=== PATIENT | male | born 1965 | race Caucasian/White ===

== ENCOUNTER 2021-09-05 11:52 | Inpatient (IN) ==
[2021-09-05] MEDS ORDERED: ONDANSETRON INJ 2 MG/ML 2 ML VIAL IV STA (12:41)
[2021-09-05] MEDS ORDERED: MoRPHine SULFATE 4 MG/ML 1 ML CARP\\VIAL IV STA (12:41)
--- NOTE | 2021-09-05 12:43 | Emergency Department Note ---
History of Present Illness General Chief complaint: Ankle Pain Stated complaint: RT ANKLE PAINFUL,DISCOLORED Time Seen by Provider: 09/05/21 12:30 History of Present Illness Maximum Pain Intensity: 6 This is a 56-year-old male with a history of diabetes that presents to the emergency department via private vehicle accompanied by with complaints of "right ankle painful, discolored". The patient notes that over the past few weeks he has been experiencing right medial ankle pain, redness, swelling. He notes he has been treated with p.o. Keflex, p.o. colchicine, p.o. allopurinol. Patient denies any history of gout. He has never had this happen before. No known trauma or injury. The patient denies any fevers or chills. Patient does note a remote history of COVID-19 in May. Patient notes he is not able to ambulate secondary to significant discomfort with weightbearing. Pain 6/10. Home Medications Medication Instructions Recorded Confirmed Type allopurinol 300 mg tablet 300 mg PO QAM 09/05/21 09/05/21 History glyburide 1.25 mg tablet 1.25 mg PO BID 09/05/21 09/05/21 History lidocaine HCl 2 % topical pump 1 spray TOPICAL TID PRN 09/05/21 09/05/21 History spray lidocaine-prilocaine 2.5 %-2.5 % 1 applic TOPICAL DIRECTED PRN 09/05/21 09/05/21 History topical cream metformin 500 mg tablet 500 mg PO BIDM 09/05/21 09/05/21 History Allergies Allergy/AdvReac Type Severity Reaction Status Date / Time No Known Allergies Allergy Unverified 09/05/21 15:11 Past Med/Surg History Medical History Hx of type 2 diabetes mellitus Surgical History No pertinent past surgical history Social History Smoking Status: Never smoker Hx Alcohol Use: Yes Alcohol type: beer Hx Substance Use: No Preferred Language: Faroese Communication Ability: Effective Senior Risk Analyst Required: No Beliefs That Will Affect Care: None Current Living Situation: Spouse Other Information That Helps Us Care for You: No Feels Safe at Home: Yes Safety Concerns: Feels Safe At This Time Assistive Devices: Denture - Upper, Denture - Lower and Glasses Review of Systems A total of 10 systems reviewed and were otherwise negative Physical Exam Vital Signs Vital Signs - 24 hr 09/05/21 12:01 09/05/21 13:05 09/05/21 14:00 Temperature 36.7 C Temperature Source Temporal Artery Scan Pulse Rate 92 H 86 76 Pulse Rate [Apical] Pulse Rate from SpO2 Sensor 87 77 Respiratory Rate 20 19 18 Respiratory Effort / Characteristics Non-Labored Spontaneous Respiratory Depth Normal Respiratory Pattern Regular Blood Pressure 126/74 128/78 91/52 L Blood Pressure [Right Arm] Blood Pressure Mean 91 94 65 Blood Pressure Mean [Right Arm] Pulse Oximetry 99 98 96 Oxygen Delivery Method Room Air Sepsis Recent Fever Within 48 Hours No Sepsis New/Unexplained Change in Mental Status No Sepsis Action Taken by Nursing No Action Required 09/05/21 14:27 09/05/21 14:30 09/05/21 15:00 Temperature Temperature Source Pulse Rate 78 82 Pulse Rate [Apical] 81 Pulse Rate from SpO2 Sensor 80 82 Respiratory Rate 16 13 14 Respiratory Effort / Characteristics Respiratory Depth Respiratory Pattern Blood Pressure Blood Pressure [Right Arm] 125/80 Blood Pressure Mean Blood Pressure Mean [Right Arm] 95 Pulse Oximetry 98 97 96 Oxygen Delivery Method Room Air Room Air Room Air Sepsis Recent Fever Within 48 Hours Sepsis New/Unexplained Change in Mental Status Sepsis Action Taken by Nursing 09/05/21 15:30 09/05/21 15:39 09/05/21 16:54 Temperature Temperature Source Pulse Rate 85 85 Pulse Rate [Apical] 80 Pulse Rate from SpO2 Sensor 86 86 Respiratory Rate 18 19 14 Respiratory Effort / Characteristics Respiratory Depth Respiratory Pattern Blood Pressure Blood Pressure [Right Arm] 133/86 Blood Pressure Mean Blood Pressure Mean [Right Arm] 101 Pulse Oximetry 98 98 95 Oxygen Delivery Method Room Air Room Air Room Air Sepsis Recent Fever Within 48 Hours Sepsis New/Unexplained Change in Mental Status Sepsis Action Taken by Nursing 09/05/21 17:01 Temperature Temperature Source Pulse Rate Pulse Rate [Apical] Pulse Rate from SpO2 Sensor Respiratory Rate Respiratory Effort / Characteristics Respiratory Depth Respiratory Pattern Blood Pressure 122/81 Blood Pressure [Right Arm] Blood Pressure Mean 94 Blood Pressure Mean [Right Arm] Pulse Oximetry Oxygen Delivery Method Sepsis Recent Fever Within 48 Hours Sepsis New/Unexplained Change in Mental Status Sepsis Action Taken by Nursing VITAL SIGNS - Vital signs and nursing notes were reviewed. Stable and afebrile. GENERAL - 56-year-old male appearing his stated age who is in no acute distress. Communicates well with provider and answers questions appropriately. SKIN -right medial ankle diffusely erythematous with darkened hue. Diffuse soft tissue edema noted to the right ankle. HEAD - NC/AT. LUNGS - Chest wall symmetric without accessory muscle use, intercostals retractions, or central cyanosis. Normal vesicular breath sounds CTA B/L. No wheezes, rales, or rhonchi appreciated. CARDIAC - RRR with S1/S2. No murmur, rubs, or gallops appreciated. EXTREMITIES - No clubbing or peripheral cyanosis. There is tenderness to palpation overlying the patient's right medial ankle joint with diffuse erythema as noted above. Decreased passive range of motion of the right ankle secondary to pain. Exquisitely tender to palpation. Right dorsalis pedis pulse intact. Cap refill of all toes within normal limits. +5/5 strength noted in UE/LE b ilaterally. NEUROLOGIC - Cranial nerves II through XII grossly intact. PSYCH - A&O, and cooperates fully with examiner. Pt is very pleasant and interacts well with examiner. Course Administered Medications Sodium Chloride (Nss 1000ml) 1,000 mls @ 125 mls/hr IV .Q8H ABDIAZIZ Stop: 09/06/21 06:57 Last Admin: 09/05/21 19:42 Dose: 125 mls/hr Documented by: [id number] Piperacillin Sod/Tazobactam (Sod 3.375 gm/ Dextrose) 115 mls @ 230 mls/hr IV NOW ONE; Protocol Stop: 09/05/21 20:29 Last Admin: 09/05/21 20:04 Dose: 230 mls/hr Documented by: [id number] Discontinued Medications Piperacillin Sod/Tazobactam (Sod 4.5 gm/ Dextrose) 120 mls @ 30 mls/hr IV Q8H ABDIAZIZ; Protocol Stop: 09/07/21 17:15 Last Infusion: 09/05/21 19:59 Dose: 0 mls/hr Documented by: [id number] Admin: 09/05/21 19:41 Dose: 30 mls/hr Documented by: [id number] Vancomycin HCl 2,000 mg/ (Sodium Chloride) 540 mls @ 200 mls/hr IV NOW ONE Stop: 09/05/21 19:57 Last Admin: 09/05/21 18:40 Dose: 200 mls/hr Documented by: [id number] Morphine Sulfate (Morphine Sulfate 4 Mg/Ml 1 Ml Carp\\Vial) 4 mg IV NOW STA Stop: 09/05/21 12:42 Last Admin: 09/05/21 13:03 Dose: 4 mg Documented by: [id number] Ondansetron HCl (Ondansetron Inj 2 Mg/Ml 2 Ml Vial) 4 mg IV NOW STA Stop: 09/05/21 12:42 Last Admin: 09/05/21 13:03 Dose: 4 mg Documented by: [id number] Medical Decision Making Laboratory Data Result diagrams: 09/05/21 12:49 09/05/21 12:49 Lab Results 09/05/21 09/05/21 09/05/21 Range/Units 12:49 12:49 12:49 WBC 5.63 (4.8-10.8) K/uL RBC 4.78 (4.7-6.1) M/uL Hgb 13.8 L (14.0-18.0) g/dL Hct 41.1 L (42-52) % MCV 86.0 (80-100) fL MCH 28.9 (25-34) pg MCHC 33.6 (32-36) g/dL RDW Std Deviation 40.8 (36.4-46.3) fL RDW Coeff of Quin 12.9 (11.5-14.5) % Plt Count 272 (130-400) K/uL MPV 11.0 H (7.4-10.4) fL Immature Gran % (Auto) 0.2 % Neut % (Auto) 60.7 % Lymph % (Auto) 27.7 % [place] % (Auto) 9.6 % Eos % (Auto) 1.6 % Baso % (Auto) 0.2 % Neut # (Auto) 3.42 (1.4-6.5) K/uL Lymph # (Auto) 1.56 (1.2-3.4) K/uL [place] # (Auto) 0.54 (0.11-0.59) K/uL Eos # (Auto) 0.09 (0-0.5) K/uL Baso # (Auto) 0.01 (0-0.2) K/uL Immature Gran # (Auto) 0.01 (0.00-0.02) K/uL ESR (0-20) mm/hr PT 10.5 (9.0-12.0) Seconds INR 1.0 (0.9-1.1) APTT 34.5 H (21.0-31.0) Seconds PTT Ratio 1.3 Sodium 135 L (136-145) mmol/L Potassium 4.4 (3.5-5.1) mmol/L Chloride 101 (98-107) mmol/L Carbon Dioxide 26 (21-32) mmol/L Anion Gap 8 (3-11) BUN 14 (6-23) mg/dl Creatinine 0.58 L (0.6-1.4) mg/dl Est Cr Clr Drug Dosing 146.8 ml/min Est GFR ( Amer) 133.0 ml/min Est GFR (Non-Af Amer) 114.8 ml/min BUN/Creatinine Ratio 24.1 H (10-20) Glucose 182 H (70-99(Fasting)) mg/dl Uric Acid 2.6 (2.6-7.2) mg/dl Calcium 9.4 (8.5-10.1) mg/dl Total Bilirubin 0.3 (0.2-1.0) mg/dl AST 25 (13-39) U/L ALT 19 (7-52) U/L Alkaline Phosphatase 73 (34-104) U/L C-Reactive Protein 10.93 H (0-0.5) mg/dl Total Protein 7.8 (6.0-8.3) gm/dl Albumin 3.8 (3.4-5.0) gm/dl Globulin 4.0 (2.5-4.0) gm/dl Albumin/Globulin Ratio 1.0 (0.9-2) Procalcitonin SARS-CoV-2, RNA, NAAT (NEGATIVE) 09/05/21 09/05/21 09/05/21 Range/Units 12:49 12:49 12:49 WBC (4.8-10.8) K/uL RBC (4.7-6.1) M/uL Hgb (14.0-18.0) g/dL Hct (42-52) % MCV (80-100) fL MCH (25-34) pg MCHC (32-36) g/dL RDW Std Deviation (36.4-46.3) fL RDW Coeff of Quin (11.5-14.5) % Plt Count (130-400) K/uL MPV (7.4-10.4) fL Immature Gran % (Auto) % Neut % (Auto) % Lymph % (Auto) % [place] % (Auto) % Eos % (Auto) % Baso % (Auto) % Neut # (Auto) (1.4-6.5) K/uL Lymph # (Auto) (1.2-3.4) K/uL [place] # (Auto) (0.11-0.59) K/uL Eos # (Auto) (0-0.5) K/uL Baso # (Auto) (0-0.2) K/uL Immature Gran # (Auto) (0.00-0.02) K/uL ESR 118 H (0-20) mm/hr PT (9.0-12.0) Seconds INR (0.9-1.1) APTT (21.0-31.0) Seconds PTT Ratio Sodium (136-145) mmol/L Potassium (3.5-5.1) mmol/L Chloride (98-107) mmol/L Carbon Dioxide (21-32) mmol/L Anion Gap (3-11) BUN (6-23) mg/dl Creatinine (0.6-1.4) mg/dl Est Cr Clr Drug Dosing ml/min Est GFR ( Amer) ml/min Est GFR (Non-Af Amer) ml/min BUN/Creatinine Ratio (10-20) Glucose (70-99(Fasting)) mg/dl Uric Acid (2.6-7.2) mg/dl Calcium (8.5-10.1) mg/dl Total Bilirubin (0.2-1.0) mg/dl AST (13-39) U/L ALT (7-52) U/L Alkaline Phosphatase (34-104) U/L C-Reactive Protein Cancelled (0-0.5) mg/dl Total Protein (6.0-8.3) gm/dl Albumin (3.4-5.0) gm/dl Globulin (2.5-4.0) gm/dl Albumin/Globulin Ratio (0.9-2) Procalcitonin Cancelled SARS-CoV-2, RNA, NAAT (NEGATIVE) 09/05/21 09/05/21 Range/Units 13:10 14:40 WBC (4.8-10.8) K/uL RBC (4.7-6.1) M/uL Hgb (14.0-18.0) g/dL Hct (42-52) % MCV (80-100) fL MCH (25-34) pg MCHC (32-36) g/dL RDW Std Deviation (36.4-46.3) fL RDW Coeff of Quin (11.5-14.5) % Plt Count (130-400) K/uL MPV (7.4-10.4) fL Immature Gran % (Auto) % Neut % (Auto) % Lymph % (Auto) % [place] % (Auto) % Eos % (Auto) % Baso % (Auto) % Neut # (Auto) (1.4-6.5) K/uL Lymph # (Auto) (1.2-3.4) K/uL [place] # (Auto) (0.11-0.59) K/uL Eos # (Auto) (0-0.5) K/uL Baso # (Auto) (0-0.2) K/uL Immature Gran # (Auto) (0.00-0.02) K/uL ESR (0-20) mm/hr PT (9.0-12.0) Seconds INR (0.9-1.1) APTT (21.0-31.0) Seconds PTT Ratio Sodium (136-145) mmol/L Potassium (3.5-5.1) mmol/L Chloride (98-107) mmol/L Carbon Dioxide (21-32) mmol/L Anion Gap (3-11) BUN (6-23) mg/dl Creatinine (0.6-1.4) mg/dl Est Cr Clr Drug Dosing ml/min Est GFR ( Amer) ml/min Est GFR (Non-Af Amer) ml/min BUN/Creatinine Ratio (10-20) Glucose (70-99(Fasting)) mg/dl Uric Acid (2.6-7.2) mg/dl Calcium (8.5-10.1) mg/dl Total Bilirubin (0.2-1.0) mg/dl AST (13-39) U/L ALT (7-52) U/L Alkaline Phosphatase (34-104) U/L C-Reactive Protein (0-0.5) mg/dl Total Protein (6.0-8.3) gm/dl Albumin (3.4-5.0) gm/dl Globulin (2.5-4.0) gm/dl Albumin/Globulin Ratio (0.9-2) Procalcitonin < 0.05 SARS-CoV-2, RNA, NAAT NEGATIVE (NEGATIVE) Imaging Data Radiologist's Impression: Ankle MRI 09/05/21 14:16 MRI OF THE RIGHT ANKLE WITHOUT IV CONTRAST CLINICAL HISTORY: Atraumatic ankle pain. Swelling and erythema. COMPARISON STUDY: No priors. TECHNIQUE: MRI of the right ankle is performed utilizing various T1 and T2- weighted sequences in the axial, sagittal, and coronal planes. IV contrast was not administered for this examination. Note that interpretation is significantly suboptimal without plain film correlate. FINDINGS: There is marked soft tissue edema and subcutaneous fluid along the medial aspect of the ankle. This extends into the deep soft tissues, involving the medial tibia and talus. There is a thin serpiginous fluid collection along the medial aspect of the ankle seen on axial image #20 measuring approximately 2.5 x 3 x 0.5 cm There is significant marrow edema within the medial malleolus and the medial aspect of the talus with cortical destruction. These findings are highly concerning for osteomyelitis. No additional similar appearing marrow changes are seen throughout the remainder of the ankle. The ankle mortise is intact. No osteochondral defect is seen in the talar dome. There is no joint effusion. The Achilles tendon is normal in morphology and signal intensity. There is marked tenosynovitis of the posterior tendons. There is thickening, tendinopathy, and high-grade partial thickness tearing of the tibialis posterior tendon. The anterior tendons appear intact. There is tendinopathy of the peroneal tendons which also appear intact. The anterior tibiofibular and talofibular ligament appear intact. There is marked abnormality involving the d eltoid ligament, likely related to adjacent infection. The calcaneofibular ligament is preserved. The plantar fascia is intact as visualized. There is myositis of the medial ankle musculature. IMPRESSION: 1. There is marked superficial and deep soft tissue edema along the medial aspect of the ankle. Correlate clinically for evidence of cellulitis. 2. There is an approximately 2.5 x 3 x 0.5 cm serpiginous fluid collection overlying the medial ankle suspicious for abscess. 3. There is marrow edema and cortical destruction seen involving the medial malleolus and the medial aspect of the talus. Osteomyelitis is the diagnosis of exclusion. An inflammatory arthropathy is a much less likely differential consideration. 4. There is marked tenosynovitis of the posterior tendons, which may be on an infectious basis. 5. There is tendinopathy with significant thickening and high-grade partial thickness tearing of the tibialis posterior tendon. 6. There is significant abnormality of the deltoid ligament, likely related to adjacent infection/inflammation. Tearing is not excluded. 7. There is myositis of the regional musculature. Findings were discussed with Willard Tom in the emergency department at the time of interpretation. Electronically signed by: Master Hart M.D. 09/05/2021 5:27 PM MDM Narrative Patient was seen and evaluated as above in room B02. Review was performed of nursing notes and vital signs. After obtaining a thorough history and physical examination the above work up was performed. Patient presents to us today with atraumatic right medial ankle discomfort that has been ongoing for 3 weeks now. Patient was referred by PCP office. I did review the laboratory studies and im aging results that were provided. His vital signs are stable. Patient is exquisitely tender overlying the right medial ankle joint. He is well-perfused in the right lower extremity. No evidence of vascular compromise. He is sensory intact throughout the right lower extremity. Options of care were discussed with the patient. IV access was established. Labs were drawn. There is no leukocytosis. Mild anemia. ESR and CRP are markedly elevated. Pro-Ronnie normal. Covid testing negative. MRI significantly abnormal. I am concerned about infectious etiology at the present time. I discussed the case with orthopedics. I discussed the findings with the patient and at bedside. IV antibiotics ordered. Case discussed with hospitalist service. Please refer to further documentation regarding his stay. Case was discussed with the attending physician. GCS: 15 In the evaluation and treatment of this patient the following differential diagnoses were entertained: Fracture, dislocation, subluxation, contusion, septic joint, osteomyelitis, among others Impression & Plan Acute right ankle pain, Edema of right ankle, Ankle osteomyelitis, right, Abnormal MRI Discharge Plan Visit Data Chief Complaint: Ankle Pain Stated Complaint: RT ANKLE PAINFUL,DISCOLORED ED Provider: Lisa Gold ED Midlevel Provider: Willard Tom Discharge Problem: Acute right ankle pain, Edema of right ankle, Ankle osteomyelitis, right, Abnormal MRI Patient Disposition: Admitted As Inpatient Condition: Good Discharge Instructions Interventions: ED Discharge Assessment Last Done: 09/05/21 18:18
[2021-09-05 13:39] LABS: Basophils # (auto) 0.01 K/uL (0-0.2); Basophils % (auto) 0.2 %; Eosinophils # (auto) 0.09 K/uL (0-0.5); Eosinophils % (auto) 1.6 %; Hematocrit (blood only) 41.1 % (42-52); Hemoglobin 13.8 g/dL (14.0-18.0); Immature Granulocytes # (auto) 0.01 K/uL (0.00-0.02); Immature Granulocytes % (auto) 0.2 %; Lymphocytes # (auto) 1.56 K/uL (1.2-3.4); Lymphocytes % (auto) 27.7 %; Mean Corpuscular Hemoglobin 28.9 pg (25-34); Mean Corpuscular Hgb Conc 33.6 g/dL (32-36); Monocytes # (auto) 0.54 K/uL (0.11-0.59); Monocytes % (auto) 9.6 %; Neutrophils # (auto) 3.42 K/uL (1.4-6.5); Neutrophils % (auto) 60.7 %; Platelet Count 272 K/uL (130-400); RDW Coefficient of Variation 12.9 % (11.5-14.5); RDW Standard Deviation 40.8 fL (36.4-46.3); Red Blood Count 4.78 M/uL (4.7-6.1); White Blood Count 5.63 K/uL (4.8-10.8)
[2021-09-05 13:51] LABS: Partial Thromboplastin Ratio 1.3; Partial Thromboplastin Time 34.5 Seconds (21.0-31.0); Prothrombin Time 10.5 Seconds (9.0-12.0)
[2021-09-05 14:03] LABS: Albumin Level 3.8 gm/dl (3.4-5.0); BUN Creatinine Ratio 24.1 (10-20); Bilirubin,Total 0.3 mg/dl (0.2-1.0); C Reactive Protein 10.93 mg/dl (0-0.5); Calcium 9.4 mg/dl (8.5-10.1); Creatinine Clr Calc Pharmacy 146.8 ml/min; Est GFR (Non-African American) 114.8 ml/min; Potassium 4.4 mmol/L (3.5-5.1); Total Protein 7.8 gm/dl (6.0-8.3); Uric Acid 2.6 mg/dl (2.6-7.2)
--- NOTE | 2021-09-05 15:21 | History & Physical Report ---
Date of Service September 05, 2021 Assessment & Plan (1) Acute right ankle pain: (2) Edema of right ankle: Plan: - Admit to med surg - Cellulitis vs septic joint with hx of DM II - MRI ankle is in process - Consult ortho - Dr. Khan - for possible joint aspiration vs surgical procedure - will make NPO in case and discuss with surgery - Continue pain contol - Uric acid 2.6 - very unlikely appearance for gout - he has completed a course of keflex as outpatient x 7 days, and finished ~3days ago. Possible keeping leukocytosis down - Afebrile, other labs WNL - ESR 118 and CRP 10.93 elevated today in the ER - PT/OT consults (3) DM II (diabetes mellitus, type II), controlled: Plan: - Check A1C with am labs - Continue ISS with accuchecks - Hold metformin and glyburide (4) Gout: Plan: - Hx of such, not an acute exacerbation DVT ppx: teds, scds, lovenox sub q CODE: Full code Dispo: From home, likely to remain in the hospital x 2 days History of Present Illness Chief Complaint: Ankle pain Primary Care Provider: Vidya Cornejo MD This is a 56-year-old male with PMHx of diabetes and gout, who has been dealing with right ankle pain/edema/erythema for approximately 2-week timeframe now. He has been trialed on outpatient Keflex, colchicine and allopurinol without relief. His pain has worsened to the point where he has difficulty walking on his R ankle, and used one crutch and a cane to get into the ER waiting room. He finished Keflex approximately 3 days ago. He has been taking colchicine and allopurinol for the past 2 weeks per his PCP. He reports that the swelling does not seem to change. He notes increased erythema and dullness of his limb whenever he hangs it below a bed and improves whenever he lays flat. He denies having peripheral neuropathy at baseline, even though he is diabetic. He takes p.o. medication for diabetes routinely. Patient denies any other specific medical history. His is with him at bedside and supports the history. CRP and ESR are significantly elevated, an MRI is in process Social history: No smoking, 3-4 alcoholic drinks per year Surgical history: None Family history: Grandfather with cardiac disease Allergies Allergy/AdvReac Type Severity Reaction Status Date / Time No Known Allergies Allergy Unverified 09/05/21 15:11 Home Medications Medication Instructions Recorded Confirmed Type allopurinol 300 mg tablet 300 mg PO QAM 09/05/21 09/05/21 History glyburide 1.25 mg tablet 1.25 mg PO BID 09/05/21 09/05/21 History lidocaine HCl 2 % topical pump 1 spray TOPICAL TID PRN 09/05/21 09/05/21 History spray lidocaine-prilocaine 2.5 %-2.5 % 1 applic TOPICAL DIRECTED PRN 09/05/21 09/05/21 History topical cream metformin 500 mg tablet 500 mg PO BIDM 09/05/21 09/05/21 History Past Med/Surg History Social History Smoking Status: Never smoker Hx Alcohol Use: Yes Alcohol type: beer Hx Substance Use: No Preferred Language: [place] Island[place] Communication Ability: Effective [employer] 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 Required: No Beliefs That Will Affect Care: None Current Living Situation: Spouse Other Information That Helps Us Care for You: No Feels Safe at Home: Yes Safety Concerns: Feels Safe At This Time Assistive Devices: Denture - Upper, Denture - Lower and Glasses Review of Systems Review of Systems: Constitutional: No fever, sweats or chills Eyes: No diplopia, no worsening or blurred vision ENT: normal hearing, no trouble swallowing Respiratory: No cough, sputum, dyspnea at rest or on exertion Cardiovascular: No chest pain, tightness or palpitations Abdomen: No pain, nausea, vomiting, diarrhea or constipation Musculoskeletal: R ankle pain, redness, swelling, pain with walking on it, increased redness with hanging foot off the side of the bed, no other joint pain, calf pain, swelling Neurologic: No weakness, numbness/tingling, or balance problems Psychiatric: No anxiety or depression Skin: No rash or itch, + lesions over shoulders that pt has picked open himself Physical Exam Physical Exam: General: awake, alert, no apparent distress Head: Normocephalic, atraumatic ENT: PERRL, EOMI, no pharyngeal exudate, mucous membranes moist Chest: Clear to auscultation, on room air, no adventitious breath sounds Cardiac: Regular rate and rhythm, no murmur, no JVD, normal peripheral pulses, good capillary refill Abdominal: NABS x 4 quadrants, soft, nondistended, nontender to palpation, no rebound or guarding Extremities: RLE; medial ankle with erythema, edema, no point of injury, pain with dorsiflexion and limited ROM, can plantarflex without much difficulty, + onychomycosis, no open lesions between toes, + dried skin over feet bilaterally, otherwise Normal inspection, no peripheral edema or erythema, calfs nontender to palpation Psych: Normal mood and affect Neuro: AAO x 3, strength intact bilaterally and rated 5/5, no motor deficits, speech is clear, no peripheral sensory deficits Results & Data Results & Data ([facility]) Vital Signs (Past 12 Hours) Vital Signs Temp Pulse Pulse Resp BP BP Pulse Ox 09/05/21 14:27 81 16 125/80 98 09/05/21 14:00 76 18 91/52 L 96 09/05/21 13:05 86 19 128/78 98 09/05/21 12:01 36.7 C 92 H 20 126/74 99 Laboratory Results 09/05/21 12:49 Aerobic Blood Culture - Pending Blood Anaerobic Blood Culture - Pending 09/05/21 12:49 Aerobic Blood Culture - Pending Blood Anaerobic Blood Culture - Pending 09/05/21 09/05/21 09/05/21 14:40 13:10 12:49 WBC RBC Hgb Hct MCV MCH MCHC RDW Std Deviation RDW Coeff of Quin Plt Count MPV Immature Gran % (Auto) Neut % (Auto) Lymph % (Auto) [place] % (Auto) Eos % (Auto) Baso % (Auto) Neut # (Auto) Lymph # (Auto) [place] # (Auto) Eos # (Auto) Baso # (Auto) Immature Gran # (Auto) ESR PT INR APTT PTT Ratio Sodium Potassium Chloride Carbon Dioxide Anion Gap BUN Creatinine Est Cr Clr Drug Dosing Est GFR ( Amer) Est GFR (Non-Af Amer) BUN/Creatinine Ratio Glucose Uric Acid Calcium Total Bilirubin AST ALT Alkaline Phosphatase C-Reactive Protein Total Protein Albumin Globulin Albumin/Globulin Ratio Procalcitonin < 0.05 Cancelled SARS-CoV-2, RNA, NAAT NEGATIVE 09/05/21 09/05/21 09/05/21 12:49 12:49 12:49 WBC RBC Hgb Hct MCV MCH MCHC RDW Std Deviation RDW Coeff of Quin Plt Count MPV Immature Gran % (Auto) Neut % (Auto) Lymph % (Auto) [place] % (Auto) Eos % (Auto) Baso % (Auto) Neut # (Auto) Lymph # (Auto) [place] # (Auto) Eos # (Auto) Baso # (Auto) Immature Gran # (Auto) ESR 118 H PT INR APTT PTT Ratio Sodium 135 L Potassium 4.4 Chloride 101 Carbon Dioxide 26 Anion Gap 8 BUN 14 Creatinine 0.58 L Est Cr Clr Drug Dosing 146.8 Est GFR ( Amer) 133.0 Est GFR (Non-Af Amer) 114.8 BUN/Creatinine Ratio 24.1 H Glucose 182 H Uric Acid 2.6 Calcium 9.4 Total Bilirubin 0.3 AST 25 ALT 19 Alkaline Phosphatase 73 C-Reactive Protein Cancelled 10.93 H Total Protein 7.8 Albumin 3.8 Globulin 4.0 Albumin/Globulin Ratio 1.0 Procalcitonin SARS-CoV-2, RNA, NAAT 09/05/21 09/05/21 12:49 12:49 WBC 5.63 RBC 4.78 Hgb 13.8 L Hct 41.1 L MCV 86.0 MCH 28.9 MCHC 33.6 RDW Std Deviation 40.8 RDW Coeff of Quin 12.9 Plt Count 272 MPV 11.0 H Immature Gran % (Auto) 0.2 Neut % (Auto) 60.7 Lymph % (Auto) 27.7 [place] % (Auto) 9.6 Eos % (Auto) 1.6 Baso % (Auto) 0.2 Neut # (Auto) 3.42 Lymph # (Auto) 1.56 [place] # (Auto) 0.54 Eos # (Auto) 0.09 Baso # (Auto) 0.01 Immature Gran # (Auto) 0.01 ESR PT 10.5 INR 1.0 APTT 34.5 H PTT Ratio 1.3 Sodium Potassium Chloride Carbon Dioxide Anion Gap BUN Creatinine Est Cr Clr Drug Dosing Est GFR ( Amer) Est GFR (Non-Af Amer) BUN/Creatinine Ratio Glucose Uric Acid Calcium Total Bilirubin AST ALT Alkaline Phosphatase C-Reactive Protein Total Protein Albumin Globulin Albumin/Globulin Ratio Procalcitonin SARS-CoV-2, RNA, NAAT Diagnostic Findings MRI ordered and in process Code Status & VTE Plan Code Status Full code Supervising Physician Co-Signing Physician Notes Patient is a 55-year-old male with history of diabetes mellitus and no other significant medical problems presents with history of worsening right ankle erythema, tenderness, swelling since 2 weeks duration. Patient denies any trauma, insect bite. He was evaluated by his PCP who thought that patient developed gout and prescribed allopurinol, colchicine and gave a 7 day course of Keflex which he completed. Patient states having difficulty bearing weight on the ankle. Please review HPI for complete details of presentation. Blood work suggestive of ESR 118, sodium 135, glucose 182, CRP 10.93, procalcitonin within normal range. On exam patient is moderately built and nourished, no apparent distress, normocephalic atraumatic, EOMI, normal breath sounds, clear to auscultation, S1-S2, no murmur, abdomen soft, nontender, normal bowel sounds, alert, awake, oriented, grossly no focal deficits, right ankle erythema, tender, swelling noted on medial side. Patient is admitted for management of right ankle cellulitis, osteomyelitis and tenosynovitis. Start on broad-spectrum antibiotics with vancomycin, Zosyn. Blood cultures obtained. Consult orthopedics. Pain control. PT OT when appropriate. Fall precautions. Hold p.o. diabetic medications and start on insulin therapy for management of diabetes mellitus. I personally reviewed the record. Patient is interviewed and examined at bedside. Patient's care is coordinated with Carley Hall. Please refer to the documentation above for details of patient's presentation and for discussion of other issues.
[2021-09-05] MEDS ORDERED: VANCOMYCIN HCL 1,500 MG in SODIUM CHLORIDE 0.9% 500 ML IV ONE (16:53)
[2021-09-05] MEDS ORDERED: VANCOMYCIN CONSULT ACTIVE PRN ×2 (16:53→17:16)
[2021-09-05] MEDS ORDERED: PIPERACILLIN/TAZOBACTAM 4.5 GM in DEXTROSE 5% 100 ML IV SCH (17:16)
[2021-09-05] MEDS ORDERED: PIPERACILL/TAZOBAC CONSULT ACTIVE PRN (17:16)
[2021-09-05] MEDS ORDERED: VANCOMYCIN HCL 2,000 MG in SODIUM CHLORIDE 0.9% 500 ML IV ONE (17:16)
--- NOTE | 2021-09-05 17:28 | Magnetic Resonance Report ---
MRI OF THE RIGHT ANKLE WITHOUT IV CONTRAST CLINICAL HISTORY: Atraumatic ankle pain. Swelling and erythema. COMPARISON STUDY: No priors. TECHNIQUE: MRI of the right ankle is performed utilizing various T1 and T2-weighted sequences in the axial, sagittal, and coronal planes. IV contrast was not administered for this examination. Note that interpretation is significantly suboptimal without plain film correlate. FINDINGS: There is marked soft tissue edema and subcutaneous fluid along the medial aspect of the ank le. This extends into the deep soft tissues, involving the medial tibia and talus. There is a thin se rpiginous fluid collection along the medial aspect of the ankle seen on axial image #20 measuring selena roximately 2.5 x 3 x 0.5 cm There is significant marrow edema within the medial malleolus and the med ial aspect of the talus with cortical destruction. These findings are highly concerning for osteomyel itis. No additional similar appearing marrow changes are seen throughout the remainder of the ankle. The ankle mortise is intact. No osteochondral defect is seen in the talar dome. There is no joint eff usion. The Achilles tendon is normal in morphology and signal intensity. There is marked tenosynoviti s of the posterior tendons. There is thickening, tendinopathy, and high-grade partial thickness teari ng of the tibialis posterior tendon. The anterior tendons appear intact. There is tendinopathy of the peroneal tendons which also appear intact. The anterior tibiofibular and talofibular ligament appear intact. There is marked abnormality involving the deltoid ligament, likely related to adjacent infec tion. The calcaneofibular ligament is preserved. The plantar fascia is intact as visualized. There is myositis of the medial ankle musculature. IMPRESSION: 1. There is marked superficial and deep soft tissue edema along the medial aspect of the ankle. Corre late clinically for evidence of cellulitis. 2. There is an approximately 2.5 x 3 x 0.5 cm serpiginous fluid collection overlying the medial ankle suspicious for abscess. 3. There is marrow edema and cortical destruction seen involving the medial malleolus and the medial aspect of the talus. Osteomyelitis is the diagnosis of exclusion. An inflammatory arthropathy is a mu ch less likely differential consideration. 4. There is marked tenosynovitis of the posterior tendons, which may be on an infectious basis. 5. There is tendinopathy with significant thickening and high-grade partial thickness tearing of the tibialis posterior tendon. 6. There is significant abnormality of the deltoid ligament, likely related to adjacent infection/inf lammation. Tearing is not excluded. 7. There is myositis of the regional musculature. Findings were discussed with Willard Tom in the emergency department at the time of interpretation. Electronically signed by: Master Hart M.D. 09/05/2021 5:27 PM
[2021-09-05] MEDS ORDERED: ONDANSETRON INJ 2 MG/ML 2 ML VIAL IV PRN (18:58)
[2021-09-05] MEDS ORDERED: GLUCOSE 10 TABS/TUBE PO PRN (18:58)
[2021-09-05] MEDS ORDERED: MoRPHine SULFATE 2 MG/ML CARP IV PRN (18:58)
[2021-09-05] MEDS ORDERED: DEXTROSE 50% 50 ML SYRINGE IV PRN (18:58)
[2021-09-05] MEDS ORDERED: GLUCOSE 40% GEL 15 GM TUBE PO PRN (18:58)
[2021-09-05] MEDS ORDERED: MoRPHine SULFATE 4 MG/ML 1 ML CARP\\VIAL IV PRN (18:58)
[2021-09-05] MEDS ORDERED: GLUCAGON FOR INJ 1 MG VIAL SQ PRN (18:58)
[2021-09-05] MEDS ORDERED: ACETAMINOPHEN 325 MG TAB PO PRN (18:58)
[2021-09-05] MEDS ORDERED: CARBOHYDRATES FOR HYPOGLYCEMIA PO PRN (18:58)
[2021-09-05] MEDS ORDERED: [UNRECOGNIZED DRUG - REMARK] TOP PRN (18:58)
--- NOTE | 2021-09-05 19:18 | XRay Report ---
RIGHT ANKLE 3 VIEWS CLINICAL HISTORY: Right ankle pain. FINDINGS: 3 views the right ankle are correlated with MRI of the right ankle performed earlier the day 09/05/2021. The skeletal structures are well mineralized. No fracture is seen. Erosive change i s noted in the medial aspect of the talus and along the inferior aspect of the medial malleolus. Ther e is marked overlying soft tissue edema. No joint effusion is identified. There are small dorsal and large plantar calcaneal enthesophytes. No soft tissue gas is seen. IMPRESSION: 1. Marked medial soft tissue edema with no fracture identified. 2. Erosive change is seen in the medial malleolus and the medial aspect of the talus. This is highly suspicious for osteomyelitis when correlated with today's MRI Electronically signed by: Master Hart M.D. 09/05/2021 7:17 PM
[2021-09-05] MEDS: SODIUM CHLORIDE 0.9% 1000ML 1,000 ML IV SCH (19:42)
[2021-09-05] MEDS ORDERED: PIPERACILLIN/TAZOBACTAM 3.375 GM in DEXTROSE 5% 100 ML IV ONE ×2 (19:45→20:00)
[2021-09-05] MEDS: INSULIN ASPART PER UNIT SC SCH ×2 (20:17→20:42)
[2021-09-05] MEDS: ACETAMINOPHEN 500 MG TAB PO PRN (20:46)
--- NOTE | 2021-09-06 01:18 | Orthopedic Consultation ---
Date of Service September 06, 2021 Assessment & Plan (1) Edema of right ankle: (2) Acute right ankle pain: (3) Abnormal MRI: 56-year-old male with DM admitted with progressive ankle pain and leg swelling. MRI shows concerning findings of bony edema with a small fluid collection in the superficial tissues this is adjacent to a high-grade partial tear of the posterior tibial tendon. I performed an aspiration today of the area identified on MRI. There was only bloody like fluid but it was sent for culture. Agree that gout diagnosis does not appear to be the top of the differential. This could be from acute tear of the posterior tibial tendon, but it does not explain his bony edema. Should presume infection for now. Due to the lack of joint involvement and now a decompressed fluid collection that is superficial, I recommended empiric antibiotics. We will follow the aspirate culture for definitive answer on infection. No indications for surgery right now, as there does not appear to be abscess in the bone that needs to be decompressed. There is no evidence of ankle effusion on t his MRI. Process is superficial. We will continue to follow. History of Present Illness Reason for Consultation: Right ankle pain swelling and difficulty ambulating Requesting Physician: . Attending Physician: Heraclio Barkley MD 56-year-old male past medical history of noninsulin-dependent type 2 diabetes without complication was admitted from the emergency room because of pain and swelling of the right medial ankle which resulted in difficulty weightbearing. Symptoms have been progressive over the past "couple weeks." He denies history of gout. He denies any history of trauma to the area. He denies any fevers or chills. He has been otherwise well. He was tried on an outpatient oral Keflex and gout treatment. Symptoms progressed regardless of this. Allergies Allergy/AdvReac Type Severity Reaction Status Date / Time No Known Allergies Allergy Unverified 09/05/21 15:11 Home Medications Medication Instructions Recorded Confirmed Type allopurinol 300 mg tablet 300 mg PO QAM 09/05/21 09/05/21 History glyburide 1.25 mg tablet 1.25 mg PO BID 09/05/21 09/05/21 History lidocaine HCl 2 % topical pump 1 spray TOPICAL TID PRN 09/05/21 09/05/21 History spray lidocaine-prilocaine 2.5 %-2.5 % 1 applic TOPICAL DIRECTED PRN 09/05/2108/20 History topical cream metformin 500 mg tablet 500 mg PO BIDM 09/05/21 09/05/21 History Past Med/Surg History Medical History Hx of type 2 diabetes mellitus Surgical History No pertinent past surgical history Social History Smoking Status: Never smoker Hx Alcohol Use: Yes Alcohol type: beer Hx Substance Use: No Preferred Language: Citizen Of [place] Communication Ability: Effective Element Burner Required: No Beliefs That Will Affect Care: None Current Living Situation: Spouse Other Information That Helps Us Care for You: No Feels Safe at Home: Yes Safety Concerns: Feels Safe At This Time Assistive Devices: Cane, Crutches and Glasses Review of Systems All systems reviewed & are unremarkable except as noted in HPI & below. Physical Exam Right leg: The knee has full range of motion without pain. There is obvious erythema and swelling that appears chronic isolated to the area just proximal to the medial malleolus. It is exquisitely tender. He has near full motion of his joint without indication of pain. There is no palpable ankle effusion. He is neurovascular intact to his toes. He has intact light touch sensation in all distributions of the right foot. Passive stretch the posterior tibial tendons provoke pain. Constitutional well developed and well nourished; no acute distress and not intoxicated appearing Respiratory normal respiratory effort; no respiratory distress Cardiovascular Extremities: normal capillary refill; no edema Skin no rashes, warm and dry Psychiatric A+Ox3, euthymic affect Results & Data Results & Data Laboratory Results . Laboratory Tests 09/05/21 09/05/21 09/05/21 12:49 12:49 12:49 WBC 5.63 Hct 41.1 L Neut % (Auto) 60.7 ESR 118 H Creatinine 0.58 L Uric Acid 2.6 C-Reactive Protein 10.93 H Diagnostic Findings X-rays of the right ankle were unremarkable. No areas of lysis. MR imaging of the right ankle demonstrate increased T2 signal of the soft tissues just proximal to the medial malleolus that correlates with exam. There is no ankle joint effusion. There is evidence of high-grade partial tearing of the posterior tibial tendon. There is a questionable fluid collection superficial to the area along the distal tibia and adjacent to the posterior tibial tendon tear. There is bony edema of the medial aspect of the talus, medial malleolus. There is no obvious bone abscess. PG Care Time/CCT Total # of Minutes Spent Total Time Spent with Patient: Total time spent is greater than 50% in coordination of care (as documented) at patient's floor/unit and/or counseling patient: Coding Level of Care Code 82656 Inpt Consult Level 4 Diagnoses Edema of right ankle M25.471 Acute right ankle pain M25.571 Abnormal MRI R93.89
[2021-09-06] MEDS: PIPERACILLIN/TAZOBACTAM 3.375 GM in DEXTROSE 5% 100 ML IV SCH ×3 (01:30→18:08)
[2021-09-06] MEDS: SODIUM CHLORIDE 0.9% 1000ML 1,000 ML IV SCH (03:18)
[2021-09-06] MEDS: VANCOMYCIN HCL 1,500 MG in SODIUM CHLORIDE 0.9% 500 ML IV SCH ×2 (05:28→18:08)
--- NOTE | 2021-09-06 08:25 | Orthopedic Progress Note ---
Date of Service September 06, 2021 Assessment & Plan (1) Edema of right ankle: (2) Acute right ankle pain: (3) Abnormal MRI: 56-year-old male with DM admitted with progressive ankle pain and leg swelling. MRI shows concerning findings of bony edema with a small fluid collection in the superficial tissues this is adjacent to a high-grade partial tear of the posterior tibial tendon. No change in the plan. We will wait for culture for definitive conclusion on infection. Would likely be able to treat with antibiotics. No indications for surgery right now, as there does not appear to be abscess in the bone that needs to be decompressed. There is no evidence of ankle effusion on this MRI. Process is superficial. We will continue to follow. No need for n.p.o. today Subjective Reports that pain is "somewhat improved". Has not put any weight since last night. Review of Systems All systems reviewed & are unremarkable except as noted in HPI & below. Physical Exam Right lower extremity: No advancement of erythema. The fluctuant area has receded noticeably. Seems to be less tender today. Able to dorsiflex and plantarflex. Remains tender along posterior tibial tendon Results & Data Results & Data Diagnostic Findings Gram stain still pending. PG Care Time/CCT Total # of Minutes Spent Total Time Spent with Patient: Total time spent is greater than 50% in coordination of care (as documented) at patient's floor/unit and/or counseling patient: Coding Level of Care Code 64844 Subseq Hosp Care Lvl 2 Diagnoses Edema of right ankle M25.471 Acute right ankle pain M25.571 Abnormal MRI R93.89
[2021-09-06 08:47] LABS: Hematocrit (blood only) 37.1 % (42-52); Hemoglobin 12.3 g/dL (14.0-18.0); Mean Corpuscular Hemoglobin 28.8 pg (25-34); Mean Corpuscular Hgb Conc 33.2 g/dL (32-36); Mean Corpuscular Volume 86.9 fL (80-100); Mean Platelet Volume 10.4 fL (7.4-10.4); Platelet Count 239 K/uL (130-400); RDW Standard Deviation 41.5 fL (36.4-46.3); Red Blood Count 4.27 M/uL (4.7-6.1); White Blood Count 5.35 K/uL (4.8-10.8)
[2021-09-06 08:54] LABS: Estimated Average Glucose 232 mg/dl; Hemoglobin A1C 9.7 % (4.5-5.6)
[2021-09-06 09:10] LABS: Albumin Level 3.3 gm/dl (3.4-5.0); BUN Creatinine Ratio 17.7 (10-20); Bilirubin,Total 0.3 mg/dl (0.2-1.0); Calcium 8.6 mg/dl (8.5-10.1); Creatinine Clr Calc Pharmacy 137.4 ml/min; Est GFR (African American) 129.4 ml/min; Est GFR (Non-African American) 111.7 ml/min; Globulin 3.3 gm/dl (2.5-4.0); Potassium 4.1 mmol/L (3.5-5.1); Total Protein 6.6 gm/dl (6.0-8.3)
[2021-09-06] MEDS: INSULIN ASPART PER UNIT SC SCH ×4 (09:37→21:15)
[2021-09-06] MEDS: allopurinoL 300 MG TAB PO SCH (09:37)
[2021-09-06] MEDS: ACETAMINOPHEN 500 MG TAB PO PRN ×2 (09:38→18:07)
[2021-09-06] MEDS: ENOXAPARIN INJ 40 MG/0.4 ML SYR SQ SCH (09:41)
--- NOTE | 2021-09-06 15:12 | Hospitalist Progress Note ---
Date of Service September 06, 2021 Assessment & Plan (1) Acute right ankle pain: (2) Edema of right ankle: Plan: He had completed a course of keflex as outpatient x 7 days, and finished ~3days prior to presentation On admission, ESR 118 and CRP 10.93 elevated today in the ER Ankle x-ray showed marked medial soft tissue edema with no fracture, erosive change in medial malleolus or medial aspect of talus. Ankle MRI showed 2.5 x 3 x 0.5 fluid collection overlying the medial ankle suspicious for abscess, marked tenosynovitis of posterior tendon, tendinopathy with significant thickening and high-grade partial-thickness tearing of the posterior tibialis tendon, myositis of regional musculature. Patient denies any trauma prior to onset of symptoms. Possibilities include abscess or tendon tear/rupture with collection, with overlying cellulitis Per Ortho evaluation, no joint involvement Continue empirical antibiotics for now and follow up aspirate culture (3) DM II (diabetes mellitus, type II), controlled: Plan: A1c is 9.7 Continue ISS with accuchecks Hold metformin and glyburide May need long acting insulin on dc Provided DM education DM educator consult (4) Gout: Plan: DVT ppx: teds, scds, lovenox sub q CODE: Full code PT/OT eval Admission and Anticipated Discharge Date Admission Date: September 05, 2021 Subjective Patient seen and examined Reports right ankle pain Denied any fevers, chills Denied any chest pain, cough, shortness of breath, palpitations Denies any nausea, vomiting, abdominal pain, diarrhea constipation Denies dysuria, frequency or urgency Physical Exam Constitutional: + well hydrated; no acute distress Eyes: PERRL, conjunctivae normal, anicteric sclerae ENMT: external ear and nose normal, oropharynx normal Respiratory: normal respiratory effort, lungs clear to auscultation Cardiovascular: Rate/Rhythm: regular rate and regular rhythm S1-S2 Gastrointestinal (Abdomen): normal bowel sounds, soft, nontender, no hepatosplenomegaly Musculoskeletal: Tenderness, erythema and swelling of the right medial malleolar region. Neurologic: PERRL, EOMI, accommodation nl, no face palsy, no dysarthria Psychiatric: A+Ox3, euthymic affect Results & Data Results & Data ([facility]) Vital Signs (Past 12 Hours) Vital Signs Temp Pulse Resp BP Pulse Ox 09/06/21 07:34 36.7 C 75 14 130/84 98 Laboratory Results Abnormal lab results 09/06/21 09/06/21 09/06/21 Range/Units 08:08 08:08 08:08 RBC 4.27 L (4.7-6.1) M/uL Hgb 12.3 L (14.0-18.0) g/dL Hct 37.1 L (42-52) % Glucose 142 H (70-99(Fasting)) mg/dl POC Glucose (70-99) mg/dl Hemoglobin A1c 9.7 H (4.5-5.6) % Albumin 3.3 L (3.4-5.0) gm/dl 09/06/21 09/06/21 Range/Units 08:14 12:19 RBC (4.7-6.1) M/uL Hgb (14.0-18.0) g/dL Hct (42-52) % Glucose (70-99(Fasting)) mg/dl POC Glucose 147 H 189 H (70-99) mg/dl Hemoglobin A1c (4.5-5.6) % Albumin (3.4-5.0) gm/dl
[2021-09-07] MEDS: PIPERACILLIN/TAZOBACTAM 3.375 GM in DEXTROSE 5% 100 ML IV SCH (01:46)
[2021-09-07] MEDS: VANCOMYCIN HCL 1,500 MG in SODIUM CHLORIDE 0.9% 500 ML IV SCH (05:48)
[2021-09-07 06:26] LABS: Hematocrit (blood only) 38.2 % (42-52); Hemoglobin 12.5 g/dL (14.0-18.0); Mean Corpuscular Hemoglobin 28.5 pg (25-34); Mean Corpuscular Hgb Conc 32.7 g/dL (32-36); Mean Platelet Volume 10.1 fL (7.4-10.4); Platelet Count 249 K/uL (130-400); RDW Standard Deviation 41.7 fL (36.4-46.3); Red Blood Count 4.39 M/uL (4.7-6.1)
[2021-09-07 06:52] LABS: Albumin Level 3.5 gm/dl (3.4-5.0); BUN Creatinine Ratio 14.7 (10-20); Bilirubin,Total 0.3 mg/dl (0.2-1.0); Calcium 8.8 mg/dl (8.5-10.1); Creatinine Clr Calc Pharmacy 113.6 ml/min; Est GFR (African American) 119.7 ml/min; Est GFR (Non-African American) 103.3 ml/min; Globulin 3.5 gm/dl (2.5-4.0); Potassium 4.2 mmol/L (3.5-5.1)
[2021-09-07] MEDS: ENOXAPARIN INJ 40 MG/0.4 ML SYR SQ SCH (08:33)
[2021-09-07] MEDS: allopurinoL 300 MG TAB PO SCH (08:34)
[2021-09-07] MEDS: INSULIN ASPART PER UNIT SC SCH ×4 (09:32→21:50)
--- NOTE | 2021-09-07 11:33 | Orthopedic Progress Note ---
Date of Service September 07, 2021 Assessment & Plan (1) Ankle osteomyelitis, right: (2) Abscess of left lower extremity excluding foot: Leg abscess seems to be localizing in previously aspirated soft tissue fluid collection. Recommend decompression with I&D tomorrow to expedite eradication of infection. Discussed risks and benefits of surgical intervention - Right Leg Irrigation and debridement with possible drain placement. He asked appropriate questions, demonstrated good understanding of decision for surgery, and agreeable to proceed with I&D. Risks we discussed include but are not limited to persistent infection, need for further procedures, nerve/vessel injury, pain syndromes, wound healing complications, blood clots, and complications related to anesthesia. Please keep NPO at midnight for surgery tomorrow. Subjective Slow improvement in pain. Was able to ambulate on crutches but placed all weight on heel. Denies fever, chills, n/v Review of Systems All systems reviewed & are unremarkable except as noted in HPI & below. Physical Exam RLE: comfortable with ankle flex ex. inversion and eversion feels tight and irritable at the swollen area. localizing area of erythema that seems to be isolating. Unfortunately, focal area has exquisitely tender fluctuance. No subtalar joint tenderness. Constitutional WD/WN, vitals as above comfortable; no acute distress and not ill appearing Results & Data Results & Data Laboratory Results remains with normal WBC. MSSA + soft tissue aspirate Diagnostic Findings Increased T2 signal in medial malleolus and talus along deltoid ligament, fluid collection along posterior tibial tendon PG Care Time/CCT Total # of Minutes Spent Total Time Spent with Patient: Total time spent is greater than 50% in coordination of care (as documented) at patient's floor/unit and/or counseling patient: Coding Level of Care Code 22361 Subseq Hosp Care Lvl 3 (57 - DECISION FOR SURGERY) Diagnoses Ankle osteomyelitis, right M86.9 Abscess of left lower extremity excluding foot L02.416
--- NOTE | 2021-09-07 14:12 | Anesthesiology Consultation ---
Date of Service September 07, 2021 Assessment & Plan (1) Encounter for pre-operative examination: Chart Review Chart Review: data entry initiated History Surgery Operation Date: 09/08/21 08:30 Proposed Procedures p Incision and Drainage Extremity: Right Ankle(Right) - Eric Charles MD Height/Weight Height: 5 ft 7 in Weight: 81.2 kg Allergies Allergy/AdvReac Type Severity Reaction Status Date / Time No Known Allergies Allergy Unverified 09/05/21 15:11 Medications Home Medications Medication Instructions Recorded Confirmed Last Taken allopurinol 300 mg tablet 300 mg PO QAM 09/05/21 09/05/21 09/05/21 glyburide 1.25 mg tablet 1.25 mg PO BID 09/05/21 09/05/21 09/05/21 lidocaine HCl 2 % topical pump 1 spray TOPICAL TID PRN 09/05/21 09/05/21 09/05/21 spray lidocaine-prilocaine 2.5 %-2.5 % 1 applic TOPICAL DIRECTED PRN 09/05/21 09/05/21 09/05/21 topical cream metformin 500 mg tablet 500 mg PO BIDM 09/05/21 09/05/21 09/05/21 Active Medications Generic Name Dose Route Start Last Admin Trade Name Freq PRN Reason Stop Dose Admin Acetaminophen 1,000 mg 09/05/21 18:18 09/06/21 18:07 Acetaminophen 500 Mg Tab PO 10/05/21 18:17 1,000 mg Q8H PRN Administration pain, fever Allopurinol 300 mg 09/06/21 09:00 09/07/21 08:34 Allopurinol 300 Mg Tab PO 10/06/21 08:59 300 mg QAM ABDIAZIZ Administration Enoxaparin Sodium 40 mg 09/06/21 09:00 09/07/21 08:33 Enoxaparin Inj 40 Mg/0.4 Ml Syr SQ 10/06/21 08:59 Not Given QAM ABDIAZIZ Vancomycin HCl 1,500 mg/ 530 mls @ 200 mls/hr 09/06/21 06:00 09/07/21 08:43 Sodium Chloride IV 10/18/21 05:59 Infused Q12H ABDIAZIZ Infusion Protocol Insulin Aspart 0 units 09/05/21 18:58 09/07/21 13:01 Insulin Aspart Per Unit SC 10/05/21 18:57 5 units ACHS ABDIAZIZ Administration Past Medical History Medical History Hx of type 2 diabetes mellitus Past Surgical History Surgical History No pertinent past surgical history Social History Smoking Status: Never smoker Hx Alcohol Use: Yes Alcohol type: beer alcohol intake frequency: holidays/special occasions only Hx Substance Use: No Physical Exam Vital Signs Last Vital Signs Temp 98.1 F 09/07/21 07:23 Pulse 74 09/07/21 07:23 Resp 16 09/07/21 07:23 BP 120/72 09/07/21 07:23 Pulse Ox 97 09/07/21 07:23 Testing Laboratory Results 09/07/21 06:07 09/07/21 06:07 PT 10.5 Seconds (9.0-12.0) 09/05/21 12:49 INR 1.0 (0.9-1.1) 09/05/21 12:49 APTT 34.5 Seconds (21.0-31.0) H 09/05/21 12:49 Hemoglobin A1c 9.7 % (4.5-5.6) H 09/06/21 08:08 09/05/21 12:49 Aerobic Blood Culture - Preliminary Blood No growth in Aerobic bottle after 48 hours. Anaerobic Blood Culture - Preliminary No growth in Anaerobic bottle after 48 hours. 09/05/21 12:49 Aerobic Blood Culture - Preliminary Blood No growth in Aerobic bottle after 48 hours. Anaerobic Blood Culture - Preliminary No growth in Anaerobic bottle after 48 hours. 09/05/21 Unknown Gram Stain - Final Leg,Right Deep Wound Culture - Final Staphylococcus aureus 09/07/21 09/07/21 12:17 08:29 POC Glucose 206 H 132 H Laboratory Tests 09/05/21 13:10 SARS-CoV-2, RNA, NAAT NEGATIVE
--- NOTE | 2021-09-07 15:09 | Hospitalist Progress Note ---
Date of Service September 07, 2021 Assessment & Plan (1) Acute right ankle pain: (2) Ankle osteomyelitis, right: (3) Edema of right ankle: Plan: He had completed a course of keflex as outpatient x 7 days, and finished ~3days prior to presentation On admission, ESR 118 and CRP 10.93 elevated today in the ER Ankle x-ray showed marked medial soft tissue edema with no fracture, erosive change in medial malleolus or medial aspect of talus. Ankle MRI showed 2.5 x 3 x 0.5 fluid collection overlying the medial ankle suspicious for abscess, marked tenosynovitis of posterior tendon, tendinopathy with significant thickening and high-grade partial-thickness tearing of the posterior tibialis tendon, myositis of regional musculature. Patient denies any trauma prior to onset of symptoms. I discussed findings with orthopedic surgeon. Concern of bone involvement Culture growing MSSA Leg abscess Osteomyelitis Plan for OR tomorrow Deescalate Abx to ceftriaxone NPO PMN (4) DM II (diabetes mellitus, type II), controlled: Plan: A1c is 9.7 Continue ISS with accuchecks Hold metformin and glyburide May need long acting insulin on dc DM educator consult (5) Gout: Plan: DVT ppx: teds, scds, Hold lovenox for OR CODE: Full code PT/OT eval Admission and Anticipated Discharge Date Admission Date: September 05, 2021 Subjective Patient seen and examined Reports right ankle pain Denied any fevers, chills Denied any chest pain, cough, shortness of breath, palpitations Denies any nausea, vomiting, abdominal pain, diarrhea constipation Denies dysuria, frequency or urgency Physical Exam Constitutional: + well hydrated; no acute distress Eyes: PERRL, conjunctivae normal, anicteric sclerae ENMT: external ear and nose normal, oropharynx normal Respiratory: normal respiratory effort, lungs clear to auscultation Cardiovascular: Rate/Rhythm: regular rate and regular rhythm Gastrointestinal (Abdomen): normal bowel sounds, soft, nontender, no hepat osplenomegaly Musculoskeletal: Tenderness, erythema and swelling of the right medial malleolar region Neurologic: PERRL, EOMI, accommodation nl, no face palsy, no dysarthria Psychiatric: A+Ox3, euthymic affect Results & Data Results & Data ([place]) Vital Signs (Past 12 Hours) Vital Signs Temp Pulse Resp BP Pulse Ox 09/07/21 07:23 36.7 C 74 16 120/72 97 Laboratory Results Abnormal lab results 09/06/21 09/06/21 09/07/21 Range/Units 17:21 20:42 06:07 RBC 4.39 L (4.7-6.1) M/uL Hgb 12.5 L (14.0-18.0) g/dL Hct 38.2 L (42-52) % Glucose (70-99(Fasting)) mg/dl POC Glucose 106 H 138 H (70-99) mg/dl 09/07/21 09/07/21 09/07/21 Range/Units 06:07 08:29 12:17 RBC (4.7-6.1) M/uL Hgb (14.0-18.0) g/dL Hct (42-52) % Glucose 133 H (70-99(Fasting)) mg/dl POC Glucose 132 H 206 H (70-99) mg/dl
[2021-09-07] MEDS: ACETAMINOPHEN 500 MG TAB PO PRN (15:44)
[2021-09-07] MEDS: cefTRIAXone SODIUM 2,000 MG in DEXTROSE 5% 50 ML IV SCH (16:07)
[2021-09-08] MEDS ORDERED: VANCOMYCIN TROUGH ONE (05:30)
[2021-09-08] MEDS ORDERED: MIDAZOLAM HCL 1 MG/ML 2ML VIAL ONE (07:12)
[2021-09-08] MEDS ORDERED: fentaNYL citrate 100 MCG/2 ML VIAL ONE ×2 (07:12→08:21)
[2021-09-08] MEDS ORDERED: INSULIN ASPART PER UNIT SC SCH (07:30)
[2021-09-08] MEDS ORDERED: ePHEDrine sulfate 50 MG/ML AMP IV PRN (07:45)
[2021-09-08] MEDS ORDERED: ONDANSETRON INJ 2 MG/ML 2 ML VIAL IV PRN (07:45)
[2021-09-08] MEDS ORDERED: ATROPINE SULFATE 0.1 MG/ML 10ML SYR IV PRN (07:45)
--- NOTE | 2021-09-08 07:48 | History & Physical Bridge Note ---
Date of Service September 08, 2021 History & Physical Bridge Note I have examined the patient, reviewed the History & Physical and in the interval since the performance of the History & Physical I have noted the following changes of clinical significance: no changes noted. More erythema to the area in question. Remains without elevated WBC. Patient is aware of COVID-19 risks. Patient is asymptomatic for COVID-19. Patient has been tested for COVID-19 - [NEGATIVE].
[2021-09-08 07:56] LABS: Hematocrit (blood only) 40.3 % (42-52); Hemoglobin 13.4 g/dL (14.0-18.0); Mean Corpuscular Hemoglobin 29.3 pg (25-34); Mean Corpuscular Hgb Conc 33.3 g/dL (32-36); Mean Platelet Volume 10.1 fL (7.4-10.4); Platelet Count 293 K/uL (130-400); RDW Coefficient of Variation 13.2 % (11.5-14.5); RDW Standard Deviation 42.6 fL (36.4-46.3); Red Blood Count 4.58 M/uL (4.7-6.1); White Blood Count 6.76 K/uL (4.8-10.8)
[2021-09-08 08:18] LABS: Albumin Level 3.9 gm/dl (3.4-5.0); BUN Creatinine Ratio 15.6 (10-20); Bilirubin,Total 0.3 mg/dl (0.2-1.0); Calcium 9.4 mg/dl (8.5-10.1); Creatinine Clr Calc Pharmacy 110.6 ml/min; Est GFR (African American) 118.4 ml/min; Est GFR (Non-African American) 102.2 ml/min; Globulin 3.9 gm/dl (2.5-4.0); Potassium 4.1 mmol/L (3.5-5.1); Total Protein 7.8 gm/dl (6.0-8.3)
[2021-09-08] MEDS: fentaNYL citrate 100 MCG/2 ML VIAL IV PRN ×4 (09:04→09:26)
[2021-09-08] MEDS ORDERED: PROPOFOL IV EMULSION 10 MG/ML 20 ML VIAL IV ONE (09:08)
[2021-09-08] MEDS ORDERED: ONDANSETRON INJ 2 MG/ML 2 ML VIAL ONE (09:08)
[2021-09-08] MEDS ORDERED: LIDOCAINE 2% 2 ML VIAL/AMP(20MG/ML) INFIL ONE (09:08)
--- NOTE | 2021-09-08 09:08 | Operative Report ---
PG Post Operative Report Pre & Post Diagnosis Operation Date: 09/08/21 08:30 Preop diagnosis: Right leg posterior medial deep abscess Postop diagnosis: Right leg posterior medial deep abscess I identified the patient and participated in the time-out.: Yes Procedure Operation Date: 09/08/21 08:30 Procedure: Right leg abscess irrigation and debridement Surgeon Eric Charles MD Social Science Analyst None; medical surgical tech Estimated Blood Loss 10 Findings See Below There was a small area of subcutaneous fluid collection in the adipose tissue. The posterior tibial retinacula was opened and the focus of infection was revealed. Appear to be a rupture of the posterior tibial tendon which likely developed a hematoma that was seated. There was abundant septic appearing tenosynovitis that was debrided in its entirety along the posterior tibial tendon. As the tendon proceeded around the infra malleoli groove there was some thickened synovium that had some purulence. It appeared chronic and resolving. Swab culture was taken from the tendon sheath area. The area of infection was tracked down to the malleolus. The periosteum was intact but there was some edema. No obvious erosion of the bone. Specimens 1 swab culture from the deep wound Drains 110 Swiss silicone roundto a NIRMAL drain Anesthesia Type General Complications none Disposition Accompanied Patient To Recovery: Yes Disposition: Recovery Room Indications 56-year-old male presents the emergency room with swelling and pain along the posterior tibial tendon. Advanced imaging was obtained and it was concern of a deep infection with some bony edema and possible erosion. I had aspirated the abscess which obtained a culture. Despite the drainage, the infection seem to localize further to the area just above the medial malleolus. Given that it was slow to resolve, I did offer an incision and debridement to expedite healing. We discussed risks and benefits in detail as outlined in the surgical consent. Patient was agreeable to proceed. Description of Procedure Patient was met in the preoperative holding area where the informed consent was reviewed and confirmed by the patient. He identify the site and I signed it. He was then turned over nursing staff and anesthesia who brought him to the emergency room. He was placed supine on the OR table. The airway was secured after induction of anesthesia. We had a gel bump under the contralateral hip to allow good access to the medial malleolus. Tourniquet was placed and the right lower extremities then prepped using ChloraPrep after decontamination with an alcohol scrub. The limb was elevated for a minute. Informed consent was reviewed at our surgical timeout. Antibiotics were infused on schedule, and equipment available and functional. Proceeded with elevation exsanguination and finally inflation of the tourniquet to 250mmHg for a total 27 minutes. Incision was made longitudinally just on the posterior aspect of the medial malleolus to allow access to the central portion of the lesion. There was subcutaneous and fluid encountered along the periosteum of the medial malleolus. The retinaculum was exposed and opened and there seem to be the focus of the infection where there was purulent looking chronic tenosynovitis. A deep swab culture from the posterior tibial tendon and infra malleoli groove was taken. We began sharp debridement using Metzenbaum scissors and a knife as well as a large curette. Once all the tenosynovium and purulent looking tissue was removed, we irrigated for a total of 2 L. There did not appear to be any significant bony involvement other than some periosteal edema. A 10 Swiss drain was then placed on the posterior tibial tendon down to the infra malleoli groove. The wound appeared clean and clear of all devitalized tissue. The wound was closed with 2-0 and 3-0 nylon suture in vertical mattress fashion. The drain was secured with additional stitch. The wounds were dressed with Xeroform plain gauze ABD and contained by web roll. The limb was placed in a standard posterior slab splint to immobilize ankle for initial wound healing. The patient tolerated the procedure well, was extubated the operating without complication, and transferred to the recovery area in stable condition. Disposition: He will need long-term parenteral IV antibiotics as directed by the wound culture. Infectious disease consult is on board already. Continue his current regimen. He will remain in the splint for at least 3 days. After which, he can be weightbearing as tolerated. We will see him back in the orthopedic clinic in 10-14 days for suture removal. The drain will remain while he is an inpatient until output is less than 30/day. DVT chemoprophylaxis may be aspirin daily. I attest to the content of the Intraoperative Record and any orders documented therein. Any exceptions are noted below.
--- NOTE | 2021-09-08 09:17 | Anesthesiology Progress Note ---
Date of Service September 08, 2021 Anesthesia Post Procedure Vital Signs Vital Signs: Temp Pulse Resp BP Pulse Ox 09/07/21 22:55 97.9 F 78 18 133/78 96 09/07/21 15:36 98.1 F 80 18 145/82 H 98 Pain Intensity Right Ankle: Pain Intensity: 2 Transfer of Care Handoff Completed per policy Notes Mental Status: alert / awake / arousable and participated in evaluation Patient Amnestic to Procedure: Yes Nausea / Vomiting: adequately controlled Pain: adequately controlled Airway Patency, RR, SpO2: stable & adequate BP & HR: stable & adequate Hydration State: stable & adequate Anesthetic Complications: no major complications apparent and Pt Satisfied with anesthetic care
[2021-09-08] MEDS ORDERED: oxyCODONE HCL IR 5 MG TAB (IMMEDIATE RELEASE) PO PRN (09:49)
--- NOTE | 2021-09-08 10:21 | Hospitalist Progress Note ---
Date of Service September 08, 2021 Assessment & Plan (1) Acute right ankle pain: (2) Ankle osteomyelitis, right: (3) Edema of right ankle: Plan: He had completed a course of keflex as outpatient x 7 days, and finished ~3days prior to presentation On admission, ESR 118 and CRP 10.93 elevated today in the ER Ankle x-ray showed marked medial soft tissue edema with no fracture, erosive change in medial malleolus or medial aspect of talus. Ankle MRI showed 2.5 x 3 x 0.5 fluid collection overlying the medial ankle suspicious for abscess, marked tenosynovitis of posterior tendon, tendinopathy with significant thickening and high-grade partial-thickness tearing of the posterior tibialis tendon, myositis of regional musculature. Patient denies any trauma prior to onset of symptoms. Aspirate culture growing MSSA Leg abscess Osteomyelitis S/p Right leg abscess irrigation and debridement today Follow up OR cultures Continue ceftriaxone Will f/u ID for final recommendations (4) DM II (diabetes mellitus, type II), controlled: Plan: A1c is 9.7 Continue ISS per protocol Hold metformin and glyburide (5) Gout: Plan: DVT ppx: teds, scds, Hold lovenox for today CODE: Full code PT/OT eval Admission and Anticipated Discharge Date Admission Date: September 05, 2021 Subjective Patient seen and examined Patient had just returned from OR Reports only pain at op site Denied any fevers, chills Denied any chest pain, cough, shortness of breath, palpitations Denies any nausea, vomiting, abdominal pain, diarrhea constipation Denies dysuria, frequency or urgency Physical Exam Constitutional: + well hydrated; no acute distress Eyes: PERRL, conjunctivae normal, anicteric sclerae ENMT: external ear and nose normal, oropharynx normal Respiratory: normal respiratory effort, lungs clear to auscultation Cardiovascular: Rate/Rhythm: regular rate and regular rhythm S1 S2 Gastrointestinal (Abdomen): normal bowel sounds, soft, nontender, no hepatosplenomegaly Musculoskeletal: Right leg and foot bandaged with drain in situ Neurologic: PERRL, EOMI, accommodation nl, no face palsy, no dysarthria Psychiatric: A+Ox3, euthymic affect Results & Data Results & Data ([facility]) Vital Signs (Past 12 Hours) Vital Signs Temp Pulse Pulse Resp BP Pulse Ox 09/08/21 09:30 36.1 C L 80 19 130/81 94 09/08/21 09:20 76 16 131/84 100 09/08/21 09:10 81 20 119/83 99 09/08/21 09:00 36.1 C L 85 18 130/83 99 09/07/21 22:55 36.6 C 78 18 133/78 96 Laboratory Results Abnormal lab results 09/07/21 09/08/21 09/08/21 Range/Units 20:43 07:26 07:31 RBC 4.58 L (4.7-6.1) M/uL Hgb 13.4 L (14.0-18.0) g/dL Hct 40.3 L (42-52) % Glucose (70-99(Fasting)) mg/dl POC Glucose 175 H 149 H (70-99) mg/dl 09/08/21 09/08/21 09/08/21 Range/Units 07:31 09:02 10:31 RBC (4.7-6.1) M/uL Hgb (14.0-18.0) g/dL Hct (42-52) % Glucose 146 H (70-99(Fasting)) mg/dl POC Glucose 154 H 150 H (70-99) mg/dl 09/08/21 Range/Units 12:11 RBC (4.7-6.1) M/uL Hgb (14.0-18.0) g/dL Hct (42-52) % Glucose (70-99(Fasting)) mg/dl POC Glucose 184 H (70-99) mg/dl
[2021-09-08] MEDS: allopurinoL 300 MG TAB PO SCH (10:24)
[2021-09-08] MEDS: oxyCODONE HCL IR 5 MG TAB (IMMEDIATE RELEASE) PO PRN ×3 (10:24→23:52)
[2021-09-08] MEDS: INSULIN ASPART PER UNIT SC SCH ×3 (13:12→21:35)
[2021-09-08] MEDS: cefTRIAXone SODIUM 2,000 MG in DEXTROSE 5% 50 ML IV SCH (15:28)
[2021-09-08] MEDS ORDERED: glyBURIDE 2.5 MG TAB PO SCH (17:00)
[2021-09-09] MEDS ORDERED: MELATONIN 3 MG TAB PO PRN (00:17)
[2021-09-09 06:57] LABS: Hematocrit (blood only) 37.4 % (42-52); Hemoglobin 12.5 g/dL (14.0-18.0); Mean Corpuscular Hemoglobin 28.9 pg (25-34); Mean Corpuscular Hgb Conc 33.4 g/dL (32-36); Mean Corpuscular Volume 86.6 fL (80-100); Mean Platelet Volume 9.9 fL (7.4-10.4); Platelet Count 250 K/uL (130-400); RDW Coefficient of Variation 13.2 % (11.5-14.5); RDW Standard Deviation 42.3 fL (36.4-46.3); Red Blood Count 4.32 M/uL (4.7-6.1); White Blood Count 7.98 K/uL (4.8-10.8)
[2021-09-09 07:22] LABS: BUN Creatinine Ratio 15.3 (10-20); Calcium 9.1 mg/dl (8.5-10.1); Creatinine Clr Calc Pharmacy 100.2 ml/min; Est GFR (African American) 113.7 ml/min; Est GFR (Non-African American) 98.1 ml/min; Potassium 4.6 mmol/L (3.5-5.1)
[2021-09-09] MEDS: ACETAMINOPHEN 500 MG TAB PO PRN ×3 (07:26→23:44)
[2021-09-09] MEDS: INSULIN ASPART PER UNIT SC SCH ×4 (08:49→20:46)
[2021-09-09] MEDS: ENOXAPARIN INJ 40 MG/0.4 ML SYR SQ SCH (08:50)
[2021-09-09] MEDS: allopurinoL 300 MG TAB PO SCH (08:50)
--- NOTE | 2021-09-09 12:18 | Orthopedic Progress Note ---
Date of Service September 09, 2021 Assessment & Plan (1) Abscess of left lower extremity excluding foot: (2) Ankle osteomyelitis, right: Making good progress on POD1 from abscess I&D. Does appear to have bone involvement with periosteal edema and MR changes. - Continue abx - Splint and drain down tomorrow by ortho for wound check - NWBing until splint comes off - Repeat culture P from OR - may be unrevealing - ABx per Hospitalist/ID - DVT ppx: without prior history or risk factors, Aspirin is acceptable Subjective Remains with pain. Manageable. No other issues. Review of Systems All systems reviewed & are unremarkable except as noted in HPI & below. Physical Exam Gen: appears comfortable, cooperative RLE: splint c/d/i. Drain with a few drops of serosanguinous drainage. Wiggles toes. Results & Data Results & Data Laboratory Results . Diagnostic Findings . PG Care Time/CCT Total # of Minutes Spent Total Time Spent with Patient: Total time spent is greater than 50% in coordination of care (as documented) at patient's floor/unit and/or counseling patient: Coding Level of Care Code 78865 Post Operative Follow-Up Diagnoses Abscess of left lower extremity excluding foot L02.416 Ankle osteomyelitis, right M86.9
--- NOTE | 2021-09-09 14:43 | Hospitalist Progress Note ---
Date of Service September 09, 2021 Assessment & Plan (1) Acute right ankle pain: (2) Ankle osteomyelitis, right: (3) Edema of right ankle: Plan: He had completed a course of keflex as outpatient x 7 days, and finished ~3days prior to presentation On admission, ESR 118 and CRP 10.93 elevated today in the ER Ankle x-ray showed marked medial soft tissue edema with no fracture, erosive change in medial malleolus or medial aspect of talus. Ankle MRI showed 2.5 x 3 x 0.5 fluid collection overlying the medial ankle suspicious for abscess, marked tenosynovitis of posterior tendon, tendinopathy with significant thickening and high-grade partial-thickness tearing of the posterior tibialis tendon, myositis of regional musculature. Patient denies any trauma prior to onset of symptoms. Aspirate culture growing MSSA Leg abscess Osteomyelitis S/p Right leg abscess irrigation and debridement POD 1 OR culture growing staph spp, sensitivities pending Discussed with ID who recommends to follow up OR culture results. If MRSA, then vancomycin but if MSSA still, then cefazolin for 6 weeks Continue IV cefazolin for now (4) DM II (diabetes mellitus, type II), controlled: Plan: A1c is 9.7 Continue ISS per protocol Hold metformin and glyburide (5) Gout: Plan: DVT ppx: teds, scds, Hold lovenox for today CODE: Full code PT/OT eval Admission and Anticipated Discharge Date Admission Date: September 05, 2021 Subjective Patient seen and examined Reports RLE pain is controlled Denied any fevers, chills Denied any chest pain, cough, shortness of breath, palpitations Denies any nausea, vomiting, abdominal pain, diarrhea constipation Denies dysuria, frequency or urgency Physical Exam Constitutional: + well hydrated; no acute distress Eyes: PERRL, conjunctivae normal, anicteric sclerae ENMT: external ear and nose normal, oropharynx normal Respiratory: normal respiratory effort, lungs clear to auscultation Cardiovascular: Rate/Rhythm: regular rate and regular rhythm S1 S2 Gastrointestinal (Abdomen): normal bowel sounds, soft, nontender, no hepatosplenomegaly Musculoskeletal: Right leg and foot bandaged Neurologic: PERRL, EOMI, accommodation nl, no face palsy, no dysarthria Psychiatric: A+Ox3, euthymic affect Results & Data Results & Data ([facility]) Vital Signs (Past 12 Hours) Vital Signs Temp Pulse Resp BP Pulse Ox 09/09/21 07:31 36.9 C 86 14 119/70 94 09/09/21 03:19 37.0 C 89 16 113/70 94 Laboratory Results Abnormal lab results 09/08/21 09/08/21 09/09/21 Range/Units 17:07 20:42 06:45 RBC 4.32 L (4.7-6.1) M/uL Hgb 12.5 L (14.0-18.0) g/dL Hct 37.4 L (42-52) % Sodium (136-145) mmol/L Glucose (70-99(Fasting)) mg/dl POC Glucose 182 H 142 H (70-99) mg/dl 09/09/21 09/09/21 09/09/21 Range/Units 06:45 08:13 12:02 RBC (4.7-6.1) M/uL Hgb (14.0-18.0) g/dL Hct (42-52) % Sodium 132 L (136-145) mmol/L Glucose 139 H (70-99(Fasting)) mg/dl POC Glucose 144 H 196 H (70-99) mg/dl
[2021-09-09] MEDS: ceFAZolin 2000MG 2,000 MG/15 ML SYR IV SCH ×2 (15:50→23:39)
[2021-09-10 06:37] LABS: Hematocrit (blood only) 38.5 % (42-52); Hemoglobin 12.7 g/dL (14.0-18.0); Mean Corpuscular Hemoglobin 28.7 pg (25-34); Mean Corpuscular Volume 86.9 fL (80-100); Mean Platelet Volume 10.4 fL (7.4-10.4); Platelet Count 247 K/uL (130-400); RDW Coefficient of Variation 13.3 % (11.5-14.5); RDW Standard Deviation 42.3 fL (36.4-46.3); Red Blood Count 4.43 M/uL (4.7-6.1); White Blood Count 6.44 K/uL (4.8-10.8)
[2021-09-10 07:00] LABS: BUN Creatinine Ratio 21.7 (10-20); Creatinine Clr Calc Pharmacy 123.4 ml/min; Est GFR (African American) 123.9 ml/min; Est GFR (Non-African American) 106.9 ml/min
[2021-09-10] MEDS: allopurinoL 300 MG TAB PO SCH (08:42)
[2021-09-10] MEDS: ENOXAPARIN INJ 40 MG/0.4 ML SYR SQ SCH (08:44)
[2021-09-10] MEDS: ceFAZolin 2000MG 2,000 MG/15 ML SYR IV SCH ×3 (08:47→19:54)
[2021-09-10] MEDS: INSULIN ASPART PER UNIT SC SCH ×4 (09:03→20:43)
--- NOTE | 2021-09-10 15:16 | Hospitalist Progress Note ---
Date of Service September 10, 2021 Assessment & Plan (1) Acute right ankle pain: (2) Ankle osteomyelitis, right: (3) Abscess: (4) Edema of right ankle: Plan: This is a 56-year-old male with PMHx of diabetes and gout, who has been dealing with right ankle pain/edema/erythema for approximately 2-weeks. He had completed a course of keflex as outpatient x 7 days, and finished ~3days prior to presentation. On admission, ESR 118 and CRP 10.93 Ankle x-ray showed marked medial soft tissue edema with no fracture, erosive change in medial malleolus or medial aspect of talus. Ankle MRI showed 2.5 x 3 x 0.5 fluid collection overlying the medial ankle suspicious for abscess, marked tenosynovitis of posterior tendon, tendinopathy with significant thickening and high-grade partial-thickness tearing of the posterior tibialis tendon, myositis of regional musculature. Patient denies any trauma prior to onset of symptoms. Aspirate culture grew MSSA POD #2 Right leg abscess irrigation and debridement by Dr. Charles OR culture growing MSSA ID consulted On IV cefazolin, will need IV cefazolin for 6 weeks. Weekly CBC and BMP, biweekly CRP. PICC line placed today, plan for discharge tomorrow (5) DM II (diabetes mellitus, type II), controlled: Plan: A1c is 9.7 NovoLog per protocol while hospitalized, hold oral agents Plan on increasing Metformin at discharge (6) Gout: Plan: Continue allopurinol DVT ppx: SQ Lovenox Dispo: Plan on DC home tomorrow with home health with 6 weeks of IV cefazolin therapy. Admission and Anticipated Discharge Date Admission Date: September 05, 2021 Supervising Physician Co-Signing Physician Notes Patient seen and examined. 56-year-old man with diabetes who presented with right foot swelling and pain. Being managed for acute right foot osteomyelitis with abscess. Status post I&D postop day 2. Patient reports pain is controlled. Exam notable for clean dressing and bandage over right foot. Labs are grossly unremarkable. Patient will need IV antibiotic for 6 weeks. Discussed with patient about this. Consent obtained for PICC line. Case management working on details of home IV infusion set up. Hopefully discharge in the next 24 hours. Provided more constant about home diabetic management. With increase Metformin to 1000 mg twice daily on discharge. Agree with other plans as detailed by Laurie RICARDO Subjective Patient seen and examined. Follow-up for right ankle osteomyelitis and abscess. Patient reports he is doing well, minimal pain. Eager to be discharged. No chest pain or shortness of breath. Denies abdominal pain or nausea. Review of Systems Review of Systems: ROS per HPI, all other systems reviewed and negative Physical Exam Constitutional: WD/WN, vitals as above Respiratory: normal respiratory effort, lungs clear to auscultation Cardiovascular: Rate/Rhythm: regular rate and regular rhythm Vessels: normal peripheral pulses Extremities: no edema Gastrointestinal (Abdomen): Percussion/Palpation: abdomen soft; abdomen nontender Musculoskeletal: S/p right ankle surgery, dressing CDI, CSM checks intact to RLE Skin: no rashes, warm and dry Neurologic: no focal motor deficits Psychiatric: A+Ox3, euthymic affect Results & Data Results & Data ([facility]) Vital Signs (Past 12 Hours) Vital Signs Temp Pulse Resp BP BP Pulse Ox 09/10/21 11:00 36.8 C 89 16 130/83 94 09/10/21 07:21 36.8 C 82 16 113/76 95 Laboratory Results Short CBC 09/10/21 Range/Units 06:19 WBC 6.44 (4.8-10.8) K/uL Hgb 12.7 L (14.0-18.0) g/dL Hct 38.5 L (42-52) % Plt Count 247 (130-400) K/uL BMP 09/10/21 06:19 Sodium 135 L Potassium 4.0 Chloride 101 Carbon Dioxide 26 BUN 15 Creatinine 0.69 Glucose 134 H Calcium 9.0
--- NOTE | 2021-09-10 19:27 | Orthopedic Progress Note ---
Date of Service September 10, 2021 Assessment & Plan (1) Abscess of left lower extremity excluding foot: (2) Ankle osteomyelitis, right: The needle aspiration and Intra-Op culture correspond with MSSA. The MRI was concerning for bone edema of the medial talus and medial malleolus. There was extension of the tenosynovitis infection down to the infra malleoli groove. I recommend treating this as osteo with the antibiotic regimen as the bony edema that I encountered. This was sufficiently debrided. The causative factors were likely a high-grade partial tear of the posterior tibial tendon. Pain progressed over several weeks and the likely seeded a hematoma with MSSA somehow. This involved the tendon sheath and advanced down to the infra malleoli area where it may have involved the bone. On exam today, the area appears decompressed and the erythema has resolved finally. At this point he can advance weightbearing as tolerated. The splint was taken down and removed. The wound should have a dressing change with hygiene or at least daily. The sutures can be removed in our clinic in 10-14 days. He is stable for discharge from an orthopedic perspective once antibiotic plan is established. We will continue to follow. Subjective Patient reports tolerable pain. He has been keeping it elevated. He was agreeable to splint takedown and drain removal today. Review of Systems All systems reviewed & are unremarkable except as noted in HPI & below. Physical Exam General: He appears very well and in no distress whatsoever. He is very cooperative. Right lower extremity: The ankle splint was taken down. There was minimal drain output, so it was removed. The wound was well approximated with dried bloody drainage. No active expressible drainage. Minor drainage at the drain site. The erythema was nearly completely resolved. Guarded range of motion of the ankle due to discomfort, as expected. Neurovascular intact. Results & Data Results & Data Laboratory Results H & H 09/05/21 09/06/21 09/07/21 Range/Units 12:49 08:08 06:07 Hgb 13.8 L 12.3 L 12.5 L (14.0-18.0) g/dL Hct 41.1 L 37.1 L 38.2 L (42-52) % 09/08/21 09/09/21 09/10/21 Range/Units 07:31 06:45 06:19 Hgb 13.4 L 12.5 L 12.7 L (14.0-18.0) g/dL Hct 40.3 L 37.4 L 38.5 L (42-52) % Coagulation 09/05/21 Range/Units 12:49 INR 1.0 (0.9-1.1) Microbiology 09/05/21 12:49 Aerobic Blood Culture - Final Blood No growth in Aerobic bottle after 5 days. Anaerobic Blood Culture - Final No growth in Anaerobic bottle after 5 days. 09/05/21 12:49 Aerobic Blood Culture - Final Blood No growth in Aerobic bottle after 5 days. Anaerobic Blood Culture - Final No growth in Anaerobic bottle after 5 days. 09/08/21 Unknown Gram Stain - Final Leg,Right Aerobic and Anaerobic Culture - Preliminary Intra-Op culture Staphylococcus aureus Diagnostic Findings . PG Care Time/CCT Total # of Minutes Spent Total Time Spent with Patient: Total time spent is greater than 50% in coordination of care (as documented) at patient's floor/unit and/or counseling patient: Coding Level of Care Code 22376 Post Operative Follow-Up Diagnoses Abscess of left lower extremity excluding foot L02.416 Ankle osteomyelitis, right M86.9
[2021-09-11] MEDS: ceFAZolin 2000MG 2,000 MG/15 ML SYR IV SCH (06:03)
[2021-09-11] MEDS: INSULIN ASPART PER UNIT SC SCH ×2 (09:11→13:01)
[2021-09-11] MEDS: allopurinoL 300 MG TAB PO SCH (09:15)
[2021-09-11] MEDS: ENOXAPARIN INJ 40 MG/0.4 ML SYR SQ SCH (10:18)
[2021-09-11] MEDS ORDERED: cefTRIAXone SODIUM 2,000 MG in DEXTROSE 5% 50 ML IV SCH (12:00)
--- NOTE | 2021-09-11 13:35 | Orthopedic Progress Note ---
Date of Service September 11, 2021 Assessment & Plan (1) Abscess of left lower extremity excluding foot: (2) Ankle osteomyelitis, right: Making expected progress on postop day 2. PICC line has been established. No further need for orthopedic inpatient services. At this point he can advance weightbearing as tolerated. The wound should have a dressing change with hygiene or at least daily. The sutures can be removed in our clinic in 10-14 days. He is stable for discharge from an orthopedic perspective. [place] text me with questions Subjective Patient reports improving pain. No issues the dressing. He is out of bed with a walker. PT evaluating right now. Review of Systems All systems reviewed & are unremarkable except as noted in HPI & below. Physical Exam General: Appears comfortable and pleasant Right lower extremity: The dressing was taken down to reveal a well approximated incision with intact sutures. There is mild bloody drainage from the drain site. No evidence of erythema or drainage. Neurovascular intact. Redressed. Results & Data Results & Data Laboratory Results H & H 09/05/21 09/06/21 09/07/21 Range/Units 12:49 08:08 06:07 Hgb 13.8 L 12.3 L 12.5 L (14.0-18.0) g/dL Hct 41.1 L 37.1 L 38.2 L (42-52) % 09/08/21 09/09/21 09/10/21 Range/Units 07:31 06:45 06:19 Hgb 13.4 L 12.5 L 12.7 L (14.0-18.0) g/dL Hct 40.3 L 37.4 L 38.5 L (42-52) % Coagulation 09/05/21 Range/Units 12:49 INR 1.0 (0.9-1.1) Diagnostic Findings . PG Care Time/CCT Total # of Minutes Spent Total Time Spent with Patient: Total time spent is greater than 50% in coordination of care (as documented) at patient's floor/unit and/or counseling patient: Coding Level of Care Code 24636 Post Operative Follow-Up Diagnoses Abscess of left lower extremity excluding foot L02.416 Ankle osteomyelitis, right M86.9
--- NOTE | 2021-09-11 16:30 | Discharge Summary ---
Date of Service September 11, 2021 Admission HPI Per Admitting Provider This is a 56-year-old male with PMHx of diabetes and gout, who has been dealing with right ankle pain/edema/erythema for approximately 2-week timeframe now. He has been trialed on outpatient Keflex, colchicine and allopurinol without relief. His pain has worsened to the point where he has difficulty walking on his R ankle, and used one crutch and a cane to get into the ER waiting room. He finished Keflex approximately 3 days ago. He has been taking colchicine and allopurinol for the past 2 weeks per his PCP. He reports that the swelling does not seem to change. He notes increased erythema and dullness of his limb whenever he hangs it below a bed and improves whenever he lays flat. He denies having peripheral neuropathy at baseline, even though he is diabetic. He takes p.o. medication for diabetes routinely. Patient denies any other specific medical history. His is with him at bedside and supports the history. CRP and ESR are significantly elevated, an MRI is in process Social history: No smoking, 3-4 alcoholic drinks per year Surgical history: None Family history: Grandfather with cardiac disease Admission Exam Per Admitting Provider General: awake, alert, no apparent distress Head: Normocephalic, atraumatic ENT: PERRL, EOMI, no pharyngeal exudate, mucous membranes moist Chest: Clear to auscultation, on room air, no adventitious breath sounds Cardiac: Regular rate and rhythm, no murmur, no JVD, normal peripheral pulses, good capillary refill Abdominal: NABS x 4 quadrants, soft, nondistended, nontender to palpation, no rebound or guarding Extremities: RLE; medial ankle with erythema, edema, no point of injury, pain with dorsiflexion and limited ROM, can plantarflex without much difficulty, + onychomycosis, no open lesions between toes, + dried skin over feet bilaterally, otherwise Normal inspection, no peripheral edema or erythema, calfs nontender to palpation Psych: Normal mood and affect Neuro: AAO x 3, strength intact bilaterally and rated 5/5, no motor deficits, speech is clear, no peripheral sensory deficits Principal Diagnosis Right ankle osteomyelitis and abscess Discharge Exam Constitutional WD/WN, vitals as above Respiratory normal respiratory effort, lungs clear to auscultation Cardiovascular Rate/Rhythm: regular rate and regular rhythm Vessels: normal peripheral pulses Extremities: no edema Gastrointestinal (Abdomen) Percussion/Palpation: abdomen soft; abdomen nontender Musculoskeletal Right foot dressing CDI, CSM checks intact to right foot Skin no rashes, warm and dry Neurologic no focal motor deficits Psychiatric A+Ox3, euthymic affect Discharge Data Allergies Allergy/AdvReac Type Severity Reaction Status Date / Time No Known Allergies Allergy Unverified 09/05/21 15:11 Consultations [facility] orthopedics Procedures Performed Operation Date: 09/08/21 08:30 Actual Procedures p Incision and Drainage Extremity: Right Ankle(Right) - Eric Charles MD Ordered Studies Laboratory Results WBC 6.44 K/uL (4.8-10.8) 09/10/21 06:19 RBC 4.43 M/uL (4.7-6.1) L 09/10/21 06:19 Hgb 12.7 g/dL (14.0-18.0) L 09/10/21 06:19 Hct 38.5 % (42-52) L 09/10/21 06:19 MCV 86.9 fL (80-100) 09/10/21 06:19 MCH 28.7 pg (25-34) 09/10/21 06:19 MCHC 33.0 g/dL (32-36) 09/10/21 06:19 RDW Std Deviation 42.3 fL (36.4-46.3) 09/10/21 06:19 RDW Coeff of Quin 13.3 % (11.5-14.5) 09/10/21 06:19 Plt Count 247 K/uL (130-400) 09/10/21 06:19 MPV 10.4 fL (7.4-10.4) 09/10/21 06:19 Immature Gran % (Auto) 0.2 % 09/05/21 12:49 Neut % (Auto) 60.7 % 09/05/21 12:49 Lymph % (Auto) 27.7 % 09/05/21 12:49 Collier % (Auto) 9.6 % 09/05/21 12:49 Eos % (Auto) 1.6 % 09/05/21 12:49 Baso % (Auto) 0.2 % 09/05/21 12:49 Neut # (Auto) 3.42 K/uL (1.4-6.5) 09/05/21 12:49 Lymph # (Auto) 1.56 K/uL (1.2-3.4) 09/05/21 12:49 Collier # (Auto) 0.54 K/uL (0.11-0.59) 09/05/21 12:49 Eos # (Auto) 0.09 K/uL (0-0.5) 09/05/21 12:49 Baso # (Auto) 0.01 K/uL (0-0.2) 09/05/21 12:49 Immature Gran # (Auto) 0.01 K/uL (0.00-0.02) 09/05/21 12:49 ESR 118 mm/hr (0-20) H 09/05/21 12:49 PT 10.5 Seconds (9.0-12.0) 09/05/21 12:49 INR 1.0 (0.9-1.1) 09/05/21 12:49 APTT 34.5 Seconds (21.0-31.0) H 09/05/21 12:49 PTT Ratio 1.3 09/05/21 12:49 Sodium 135 mmol/L (136-145) L 09/10/21 06:19 Potassium 4.0 mmol/L (3.5-5.1) 09/10/21 06:19 Chloride 101 mmol/L (98-107) 09/10/21 06:19 Carbon Dioxide 26 mmol/L (21-32) 09/10/21 06:19 Anion Gap 8 (3-11) 09/10/21 06:19 BUN 15 mg/dl (6-23) 09/10/21 06:19 Creatinine 0.69 mg/dl (0.6-1.4) 09/10/21 06:19 Est Cr Clr Drug Dosing 123.4 ml/min 09/10/21 06:19 Est GFR ( Amer) 123.9 ml/min 09/10/21 06:19 Est GFR (Non-Af Amer) 106.9 ml/min 09/10/21 06:19 BUN/Creatinine Ratio 21.7 (10-20) H 09/10/21 06:19 Glucose 134 mg/dl (70-99(Fasting)) H 09/10/21 06:19 POC Glucose 164 mg/dl (70-99) H 09/11/21 11:55 Estimat Average Glucose 232 mg/dl 09/06/21 08:08 Hemoglobin A1c 9.7 % (4.5-5.6) H 09/06/21 08:08 Uric Acid 2.6 mg/dl (2.6-7.2) 09/05/21 12:49 Calcium 9.0 mg/dl (8.5-10.1) 09/10/21 06:19 Total Bilirubin 0.3 mg/dl (0.2-1.0) 09/08/21 07:31 AST 22 U/L (13-39) 09/08/21 07:31 ALT 16 U/L (7-52) 09/08/21 07:31 Alkaline Phosphatase 66 U/L (34-104) 09/08/21 07:31 C-Reactive Protein 10.93 mg/dl (0-0.5) H 09/05/21 12:49 C-Reactive Protein Cancelled 09/05/21 12:49 Total Protein 7.8 gm/dl (6.0-8.3) 09/08/21 07:31 Albumin 3.9 gm/dl (3.4-5.0) 09/08/21 07:31 Globulin 3.9 gm/dl (2.5-4.0) 09/08/21 07:31 Albumin/Globulin Ratio 1.0 (0.9-2) 09/08/21 07:31 Procalcitonin < 0.05 ng/ml (0-0.5) 09/05/21 14:40 SARS-CoV-2, RNA, NAAT NEGATIVE (NEGATIVE) 09/05/21 13:10 Impressions Ankle MRI 09/05/21 14:16 MRI OF THE RIGHT ANKLE WITHOUT IV CONTRAST CLINICAL HISTORY: Atraumatic ankle pain. Swelling and erythema. COMPARISON STUDY: No priors. TECHNIQUE: MRI of the right ankle is performed utilizing various T1 and T2- weighted sequences in the axial, sagittal, and coronal planes. IV contrast was not administered for this examination. Note that interpretation is significantly suboptimal without plain film correlate. FINDINGS: There is marked soft tissue edema and subcutaneous fluid along the medial aspect of the ankle. This extends into the deep soft tissues, involving the medial tibia and talus. There is a thin serpiginous fluid collection along the medial aspect of the ankle seen on axial image #20 measuring approximately 2.5 x 3 x 0.5 cm There is significant marrow edema within the medial malleolus and the medial aspect of the talus with cortical destruction. These findings are highly concerning for osteomyelitis. No additional similar appearing marrow changes are seen throughout the remainder of the ankle. The ankle mortise is intact. No osteochondral defect is seen in the talar dome. There is no joint effusion. The Achilles tendon is normal in morphology and signal intensity. There is marked tenosynovitis of the posterior tendons. There is thickening, tendinopathy, and high-grade partial thickness tearing of the tibialis posterior tendon. The anterior tendons appear intact. There is tendinopathy of the peroneal tendons which also appear intact. The anterior tibiofibular and talofibular ligament appear intact. There is marked abnormality involving the deltoid ligament, likely related to adjacent infection. The calcaneofibular ligament is preserved. The plantar fascia is intact as visualized. There is myositis of the medial ankle musculature. IMPRESSION: 1. There is marked superficial and deep soft tissue edema along the medial aspect of the ankle. Correlate clinically for evidence of cellulitis. 2. There is an approximately 2.5 x 3 x 0.5 cm serpiginous fluid collection overlying the medial ankle suspicious for abscess. 3. There is marrow edema and cortical destruction seen involving the medial malleolus and the medial aspect of the talus. Osteomyelitis is the diagnosis of exclusion. An inflammatory arthropathy is a much less likely differential consideration. 4. There is marked tenosynovitis of the posterior tendons, which may be on an infectious basis. 5. There is tendinopathy with significant thickening and high-grade partial thickness tearing of the tibialis posterior tendon. 6. There is significant abnormality of the deltoid ligament, likely related to adjacent infection/inflammation. Tearing is not excluded. 7. There is myositis of the regional musculature. Findings were discussed with Willard Tom in the emergency department at the time of interpretation. Electronically signed by: Master Hart M.D. 09/05/2021 5:27 PM Ankle X-Ray 09/05/21 17:34 RIGHT ANKLE 3 VIEWS CLINICAL HISTORY: Right ankle pain. FINDINGS: 3 views the right ankle are correlated with MRI of the right ankle performed earlier the same day 09/05/2021. The skeletal structures are well mineralized. No fracture is seen. Erosive change is noted in the medial aspect of the talus and along the inferior aspect of the medial malleolus. There is marked overlying soft tissue edema. No joint effusion is identified. There are small dorsal and large plantar calcaneal enthesophytes. No soft tissue gas is seen. IMPRESSION: 1. Marked medial soft tissue edema with no fracture identified. 2. Erosive change is seen in the medial malleolus and the medial aspect of the talus. This is highly suspicious for osteomyelitis when correlated with today's MRI Electronically signed by: Master Hart M.D. 09/05/2021 7:17 PM Diabetes Follow up Diabetes Follow-up Needed for HgbA1c >9% Hospital Course (1) Acute right ankle pain: (2) Ankle osteomyelitis, right: (3) Abscess: (4) Edema of right ankle: This is a 56-year-old male with PMHx of diabetes and gout, who has been dealing with right ankle pain/edema/erythema for approximately 2-weeks. He had completed a course of keflex as outpatient x 7 days, and finished ~3days prior to presentation. On admission, ESR 118 and CRP 10.93 Ankle x-ray showed marked medial soft tissue edema with no fracture, erosive change in medial malleolus or medial aspect of talus. Ankle MRI showed 2.5 x 3 x 0.5 fluid collection overlying the medial ankle suspicious for abscess, marked tenosynovitis of posterior tendon, tendinopathy with significant thickening and high-grade partial-thickness tearing of the posterior tibialis tendon, myositis of regional musculature. Patient denies any trauma prior to onset of symptoms. Aspirate culture grew MSSA 09/08/21 - s/p Right leg abscess irrigation and debridement by Dr. Charles OR culture growing MSSA ID consulted Initially received IV cefazolin however due to high co-pay, this was changed to IV ceftriaxone 2 g daily, discussed with ID. Will need IV antibiotics for 6 weeks, last dose on 10/21/2021. Weekly CBC and BMP, biweekly CRP. PICC line placed. (5) DM II (diabetes mellitus, type II), controlled: A1c is 9.7 Oral agents held and patient received NovoLog per protocol while hospitalized Metformin increased to 1000 mg twice daily at discharge. Resume glyburide at discharge. (6) Gout: Continue allopurinol Total Time Total Time Spent Total Time Spent (In Minutes): 40 Discharge Plan Discharge Items Patient Disposition: Home - Home Health Services Reason For Visit: Right ankle pain, swelling, redness Discharge Diagnosis: Right ankle abscess and osteomyelitis (bone infection) Condition on Discharge: Good Activity: As commented below Driving/Machine Use: No driving until your follow-up with orthopedics. Weightbearing: Right partial Weightbearing Comment: Light weightbearing/as tolerated, use walker Non-emergency contact: Primary Care Provider and Surgeon Call non-emergency contact if: you have any medication questions, your pain is not controlled, your temperature is above 101, your wound has increased redness and your wound has increased drainage Follow-up/Referrals: [facility] [Other] (Infectious Disease office will be calling you for an appointment. ) Eric Charles MD [Surgeon] - 09/20/21 10:00 am Vidya Cornejo MD [Primary Care Provider] - 09/16/21 3:30 pm Diet: Carb Consistent or DM2 and Heart Healthy Addtl Attending Provider Instructions: You came to the hospital for evaluation of right ankle pain, swelling, redness. MRI showed an infection in your right ankle. You had surgery with orthopedics and they cleaned out the infection. Given that the infection was in the bone, you will need to be on IV antibiotics for 6 weeks until 10/21/2021. You had a PICC line placed and will receive your IV antibiotic daily (ceftriaxone). Home health has also been arranged for you. Your hemoglobin A1c was checked and found to be 9.7 (diabetes number). Increase your Metformin to 1000 mg twice daily. You will not be able to return to work until you have completed your IV antibiotics on 10/21/2021. ORTHO DISCHARGE: Please keep the wound covered until followup. Change the dressing at least daily with a clean new gauze or pad (ABD) and contain with lisa wrap or compression stocking. When there is no drainage for two days, you may get the ankle wet in the shower. Allow soap/water to run over and pat dry. Do not submerse in a bath, hot tub/pool, etc until followup. Your sutures will be taken out in clinic. Do not remove yourself. Please call the orthopedic clinic above to established a followup appointment for 10-14 days since surgery. You may use crutches or a walker to walk. Weightbearing is as tolerated. Pending Studies at Discharge: No Stand-Alone Forms: My [facility], Smoking Cessation Medications and DC Order Prescriptions: New ceftriaxone 2 gram recon soln 2 g IV DAILY Qty: 1 RF: 0 Continued lidocaine-prilocaine 2.5-2.5 % Cream 1 applic topical DIRECTED PRN (Reason: Pain) RF: 0 allopurinol 300 mg tablet 300 mg PO QAM RF: 0 glyburide 1.25 mg tablet 1.25 mg PO BID RF: 0 lidocaine HCl 2 % [place],Non-Aerosol 1 spray TOPICAL TID PRN (Reason: Pain) RF: 0 Changed metformin 500 mg tablet 1,000 mg PO BIDM Qty: 0 RF: 0 Discharge Orders: Discharge Order (Routine); Ordered 09/11/21 Ordered By: Laurie Lomas/Other Patient Handouts: Ceftriaxone Injection 2,000 mg, Caring for Your PICC Dc Admission Data Admit Date/Time: 09/05/21 17:03 Attending Provider: Heraclio Barkley Admit Provider: Heraclio Barkley Primary Care Provider: Vidya Cornejo Other Providers: Omero Vaz [facility] Other Interventions: Discharge Summary Assessment (RN) Last Done: 09/11/21 13:39 Supervising Physician Co-Signing Physician Notes Patient is seen and examined at bedside. Offers no complaints today. Denies any chest pain, shortness of breath, dizziness, nausea, abdominal pain. Had lower extremity dressing change. On exam patient is moderately built and nourished, no apparent distress, normocephalic atraumatic, EOMI, normal breath sounds, clear to auscultation, S1-S2, no murmur, abdomen soft, nontender, normal bowel sounds, alert, awake, oriented, grossly no focal deficits, right lower extremity in dressing. Patient is being managed for right ankle osteomyelitis, abscess. Cultures grew MSSA. Agree with continuing Rocephin to complete course as recommended by ID. Pain is controlled. Advised patient to follow-up with PCP for further adjustment of diabetic medications. Currently he is not interested to be started on insulin. Needs follow-up with orthopedics upon discharge. Home Health Attestation I certify that this patient is under my care and that I, or a physicians certified medical assistant working with me, had a face to-face encounter that meets the home health [id number] encounter requirements with this patient. The encounter with the patient was in whole, or in part, for the following medical condition, which is the primary reason for home health care (list medical condition): ankle cellulitis- IV antibiotics I certify that, based on my findings, the following services are medically necessary home health services: My clinical findings support the need for the above services because: Skilled Nsg Assessment Skilled Nsg Instruction New Medications Further, I certify that my clinical findings support that this patient is homebound (i.e. absences from home require considerable and taxing effort and are for medical reasons or amish services or infrequently or of short duration when for other reasons) because: Transportation Assistance/Unable to Leave Home Unassisted Certification for Home Health Services: Based on the above findings, I certify that this patient is confined to the home and needs intermittent correction care, physical therapy and/or speech therapy or continues to need occupational therapy. The patient is under my care, and I have initiated the establishment of the plan of care. This patient will be followed by a physician who will periodically review the plan of care.
--- NOTE | 2021-09-19 10:35 | Coding Query ---
DEBRIDEMENT DOCUMENTATION To promote full compliance with coding requirements relating to patient care, physician participation is requested in all cases of pizza delivery uncertainty. Please assist us with the question(s) below regarding the 09/08/21 Debridement: Please place an X in the parenthesis (x). If other, please document the finding: Depth of Debridement: ( ) Skin ( ) Skin and Subcutaneous Tissue ( ) Skin, Subcutaneous Tissue and Muscle ( ) Skin, Subcutaneous Tissue, Muscle and Tendon (x) Skin, Subcutaneous Tissue, Muscle and Tendon and Bone ( ) Skin, Subcutaneous Tissue, Muscle and Tendon and Ankle Joint ( ) Other (please specify): Thank you Rose [facility]
== END 2021-09-11 15:25 | disposition home health service (06) | DRG 982 ==
LOC: ED 11:52 → SUATTDRO 17:03 → 3N 17:03